=== PATIENT | male | born 1930 | race Caucasian/White ===

== ENCOUNTER → 2016-11-07 | Outpatient (CLI) | payer BC ==
[~2016-11-07] MED LIST: DUTA0.5C PO; FURO-85 PO; LISI-729 PO; LISI-789 PO; MCRK/10 PO; METO25TA3 PO; MIRT15TA2 PO; MIRT30TA3 PO; NEPA0.6D OPL; OFLO0.3D4 OPL; PRED1SUS3 OPL; PSYL55.43 PO; TAMS0.4C38 PO; WARF-237 PO; WARF5TAB90 PO
[2016-11-07 09:52] LABS: INR 2.1 (0.9-1.1); PROTHROMBIN TIME (PATIENT) 22.7 SECONDS (9.0-12.0)
== END | disposition home or self-care (01) ==
LOC: C.LABFOXMH 09:22
PROVIDERS: ATTEND Internal Medicine
DX: Z79.01 Long term (current) use of anticoagulants (principal)

== ENCOUNTER → 2016-11-21 | Outpatient (CLI) | payer BC ==
[~2016-11-21] MED LIST changes: -LISI-789 PO; -MIRT15TA2 PO; -NEPA0.6D OPL; -OFLO0.3D4 OPL; -PRED1SUS3 OPL; -WARF-237 PO
[2016-11-21 09:45] LABS: HEMATOCRIT 33.9 % (42-52); MEAN CELL VOLUME 93.4 fL (80-100); MEAN CORPUSCULAR HEMOGLOBIN 31.1 pg (25-34); MEAN CORPUSCULAR HGB CONC 33.3 g/dl (32-36); MEAN PLATELET VOLUME 11.1 fL (7.4-10.4); PLATELET COUNT 134 K/uL (130-400); RED BLOOD COUNT 3.63 M/uL (4.7-6.1); WHITE BLOOD COUNT 2.77 K/uL (4.8-10.8)
[2016-11-21 09:52] LABS: BLOOD UREA NITROGEN 28 mg/dl (7-18); BUN/CREATININE RATIO 28.7 (10-20); CALCIUM 9.1 mg/dl (8.5-10.1); CARBON DIOXIDE 28 mmol/L (21-32); CHLORIDE 106 mmol/L (98-107); CREATININE 0.97 mg/dl (0.60-1.40); GLUCOSE 87 mg/dl (70-99); POTASSIUM 4.5 mmol/L (3.5-5.1); SODIUM 142 mmol/L (136-145)
[2016-11-21 09:59] LABS: INR 2.3 (0.9-1.1); PROTHROMBIN TIME (PATIENT) 25.4 SECONDS (9.0-12.0)
== END | disposition home or self-care (01) ==
LOC: C.LABFOXMH 09:16
PROVIDERS: ATTEND Internal Medicine
DX: Z51.81 Encounter for therapeutic drug level monitoring (principal); Z79.01 Long term (current) use of anticoagulants; I48.2 Chronic atrial fibrillation

== ENCOUNTER → 2016-12-12 | Outpatient (CLI) | payer BC ==
[2016-12-12 09:55] LABS: PROTHROMBIN TIME (PATIENT) 33.5 SECONDS (9.0-12.0)
== END | disposition home or self-care (01) ==
LOC: C.LABFOXMH 09:12
PROVIDERS: ATTEND Internal Medicine
DX: Z79.01 Long term (current) use of anticoagulants (principal)

== ENCOUNTER → 2017-01-02 | Outpatient (CLI) | payer BC ==
[2017-01-02 10:39] LABS: INR 1.9 (0.9-1.1); PROTHROMBIN TIME (PATIENT) 20.9 SECONDS (9.0-12.0)
== END | disposition home or self-care (01) ==
LOC: C.LABFOXMH 10:12
PROVIDERS: ATTEND Internal Medicine
DX: Z79.01 Long term (current) use of anticoagulants (principal)

== ENCOUNTER → 2017-01-23 | Outpatient (CLI) | payer BC ==
[2017-01-23 09:34] LABS: INR 1.6 (0.9-1.1); PROTHROMBIN TIME (PATIENT) 17.1 SECONDS (9.0-12.0)
== END | disposition home or self-care (01) ==
LOC: C.LABFOXMH 08:57
PROVIDERS: ATTEND Internal Medicine
DX: Z51.81 Encounter for therapeutic drug level monitoring (principal); Z79.01 Long term (current) use of anticoagulants

== ENCOUNTER → 2017-02-13 | Outpatient (CLI) | payer BC ==
[~2017-02-13] MED LIST changes: +LISI-789 PO; +MIRT15TA2 PO; +NEPA0.6D OPL; +OFLO0.3D4 OPL; +PRED1SUS3 OPL; +WARF-237 PO
[2017-02-13 08:27] LABS: INR 2.5 (0.9-1.1)
== END | disposition home or self-care (01) ==
LOC: C.LABFOXMH 07:44
PROVIDERS: ATTEND Internal Medicine
DX: Z79.01 Long term (current) use of anticoagulants (principal)

== ENCOUNTER → 2017-03-06 | Outpatient (CLI) | payer BC ==
[2017-03-06 09:33] LABS: INR 2.7 (0.9-1.1); PROTHROMBIN TIME (PATIENT) 29.7 SECONDS (9.0-12.0)
== END | disposition home or self-care (01) ==
LOC: C.LABFOXMH 08:58
PROVIDERS: ATTEND Internal Medicine
DX: Z79.01 Long term (current) use of anticoagulants (principal)

== ENCOUNTER → 2017-03-20 | Outpatient (CLI) | payer BC ==
[2017-03-20 10:35] LABS: HEMATOCRIT 34.1 % (42-52); MEAN CELL VOLUME 96.3 fL (80-100); MEAN CORPUSCULAR HEMOGLOBIN 31.1 pg (25-34); MEAN CORPUSCULAR HGB CONC 32.3 g/dl (32-36); MEAN PLATELET VOLUME 11.4 fL (7.4-10.4); PLATELET COUNT 119 K/uL (130-400); RED BLOOD COUNT 3.54 M/uL (4.7-6.1)
[2017-03-20 10:47] LABS: INR 2.7 (0.9-1.1); PROTHROMBIN TIME (PATIENT) 30.2 SECONDS (9.0-12.0)
[2017-03-20 10:54] LABS: BLOOD UREA NITROGEN 23 mg/dl (7-18); BUN/CREATININE RATIO 24.5 (10-20); CALCIUM 9.5 mg/dl (8.5-10.1); CARBON DIOXIDE 31 mmol/L (21-32); CHLORIDE 106 mmol/L (98-107); CREATININE 0.93 mg/dl (0.60-1.40); GLUCOSE 91 mg/dl (70-99); POTASSIUM 4.4 mmol/L (3.5-5.1); SODIUM 141 mmol/L (136-145)
== END | disposition home or self-care (01) ==
LOC: C.LABFOXMH 10:14
PROVIDERS: ATTEND Internal Medicine
DX: D64.9 Anemia, unspecified (principal); R60.9 Edema, unspecified

== ENCOUNTER → 2017-04-10 | Outpatient (CLI) | payer BC ==
[2017-04-10 08:53] LABS: INR 2.5 (0.9-1.1); PROTHROMBIN TIME (PATIENT) 27.4 SECONDS (9.0-12.0)
== END | disposition home or self-care (01) ==
LOC: C.LABFOXMH 08:00
PROVIDERS: ATTEND Internal Medicine
DX: Z79.01 Long term (current) use of anticoagulants (principal)

== ENCOUNTER → 2017-05-01 | Outpatient (CLI) | payer BC ==
[~2017-05-01] MED LIST changes: -LISI-789 PO; -MIRT15TA2 PO; -NEPA0.6D OPL; -OFLO0.3D4 OPL; -PRED1SUS3 OPL; -WARF-237 PO
[2017-05-01 11:13] LABS: INR 2.3 (0.9-1.1); PROTHROMBIN TIME (PATIENT) 25.4 SECONDS (9.0-12.0)
== END | disposition home or self-care (01) ==
LOC: C.LABFOXMH 09:13
PROVIDERS: ATTEND Internal Medicine
DX: Z79.01 Long term (current) use of anticoagulants (principal)

== ENCOUNTER → 2017-05-10 | Outpatient (CLI) | payer BC ==
[2017-05-10 16:21] LABS: HEMATOCRIT 33.5 % (42-52); MEAN CELL VOLUME 93.6 fL (80-100); MEAN CORPUSCULAR HEMOGLOBIN 30.4 pg (25-34); MEAN CORPUSCULAR HGB CONC 32.5 g/dl (32-36); MEAN PLATELET VOLUME 11.2 fL (7.4-10.4); PLATELET COUNT 131 K/uL (130-400); RED BLOOD COUNT 3.58 M/uL (4.7-6.1); WHITE BLOOD COUNT 4.03 K/uL (4.8-10.8)
== END | disposition home or self-care (01) ==
LOC: C.LABSPEC 15:15
PROVIDERS: ATTEND Internal Medicine
DX: R23.3 Spontaneous ecchymoses (principal)

== ENCOUNTER → 2017-05-29 | Outpatient (CLI) | payer BC ==
[~2017-05-29] MED LIST changes: +LISI-789 PO; +MIRT15TA2 PO; +WARF-237 PO
[2017-05-29 10:12] LABS: INR 2.5 (0.9-1.1); PROTHROMBIN TIME (PATIENT) 27.3 SECONDS (9.0-12.0)
== END | disposition home or self-care (01) ==
LOC: C.LABFOXMH 09:17
PROVIDERS: ATTEND Internal Medicine
DX: Z51.81 Encounter for therapeutic drug level monitoring (principal); Z79.01 Long term (current) use of anticoagulants

== ENCOUNTER → 2017-06-19 | Outpatient (CLI) | payer BC ==
[2017-06-19 10:01] LABS: INR 2.4 (0.9-1.1)
== END | disposition home or self-care (01) ==
LOC: C.LABFOXMH 09:31
PROVIDERS: ATTEND Nurse Practitioner Family
DX: Z51.81 Encounter for therapeutic drug level monitoring (principal); Z79.01 Long term (current) use of anticoagulants

== ENCOUNTER → 2017-07-17 | Outpatient (CLI) | payer BC ==
[2017-07-17 11:30] LABS: INR 1.9 (0.9-1.1); PROTHROMBIN TIME (PATIENT) 20.6 SECONDS (9.0-12.0)
== END | disposition home or self-care (01) ==
LOC: C.LABFOXMH 09:10
PROVIDERS: ATTEND Nurse Practitioner Family
DX: Z51.81 Encounter for therapeutic drug level monitoring (principal); Z79.01 Long term (current) use of anticoagulants

== ENCOUNTER → 2017-07-31 | Outpatient (CLI) | payer BC ==
[2017-07-31 09:02] LABS: HEMATOCRIT 34.2 % (42-52); MEAN CELL VOLUME 94.7 fL (80-100); MEAN CORPUSCULAR HGB CONC 32.7 g/dl (32-36); PLATELET COUNT 129 K/uL (130-400); RED BLOOD COUNT 3.61 M/uL (4.7-6.1)
[2017-07-31 09:06] LABS: BLOOD UREA NITROGEN 21 mg/dl (7-18); BUN/CREATININE RATIO 19.2 (10-20); CALCIUM 9.1 mg/dl (8.5-10.1); CARBON DIOXIDE 29 mmol/L (21-32); CHLORIDE 106 mmol/L (98-107); GLUCOSE 91 mg/dl (70-99); POTASSIUM 4.4 mmol/L (3.5-5.1); SODIUM 141 mmol/L (136-145)
== END | disposition home or self-care (01) ==
LOC: C.LABFOXMH 08:37
PROVIDERS: ATTEND Internal Medicine
DX: I48.91 Unspecified atrial fibrillation (principal)

== ENCOUNTER → 2017-08-14 | Outpatient (CLI) | payer BC ==
[2017-08-14 08:21] LABS: INR 3.3 (0.9-1.1); PROTHROMBIN TIME (PATIENT) 37.6 SECONDS (9.0-12.0)
== END | disposition home or self-care (01) ==
LOC: C.LABFOXMH 07:38
PROVIDERS: ATTEND Internal Medicine
DX: Z79.01 Long term (current) use of anticoagulants (principal)

== ENCOUNTER → 2017-08-29 | Day surgery (SDC) | payer BC ==
[2017-08-17 12:58] VITALS: Ht 188 cm; Wt 95.0 kg
[~2017-08-29] VITALS: Ht 188 cm; Wt 95.0 kg
[~2017-08-29] MED LIST changes: +500ML BSS 0.3ML EPI 1:1000PF IRRIG ONE; +ACETAMINOPHEN 325 MG TAB PO PRN; +AMVISC PLUS 0.8ML SYRINGE INT OCU ONE; +ATROPINE SULFATE 0.1 MG/ML 5ML SYR IV PRN; +AcetaZOLAMIDE 250 MG TAB PO SCH; +BETAXOLOL HCL 0.25% OP SUSP PER DROP CHARGE OPL SCH; +BRIMONIDINE TART 0.2% OP SOLN PER DROP CHARGE ONE; +BSS FLUSH ONE; +ENDOCOAT 0.85ML SYRINGE INT OCU ONE; +EpHEDrine SULFATE INJ 50 MG/ML AMP IV PRN; +EpINEphrine INJ 1MG/ML AMP 1 MG/ML AMP ONE; +FENTANYL CITRATE INJ 50 MCG/1 ML 2 ML VIAL ONE; +LACTATED RINGER'S 1000ML 500 ML IV SCH; +LIDOCAINE 4% OP SOLN DROP CHARGE ONE; +LIDOCAINE 4% OP SOLN DROP CHARGE OPL SCH; +LIDOCAINE HCL 1% MPF 2 ML VIAL ONE; -LISI-729 PO; +MIDAZOLAM HCL 1 MG/ML 2ML VIAL ONE; -MIRT30TA3 PO; +MIX: 4ML BSS 1ML EPI 1:1000 PF INSTIL ONE; +MOXIFLOXACIN OPH SOLN PER DROP CHARGE ONE; +NEPA0.6D OPL; +OCUCOAT 1 ML SOLN IO ONE; +OFLO0.3D4 OPL; +PHENYLEPHRINE HCL 10% OP SOLN PER DROP CHARGE OPL SCH; +POVIDONE-IODINE OP SOLN 30 ML BTL ONE; +PRED1SUS3 OPL; +PROPARACAINE 0.5% OP SOLN PER DROP CHARGE OPL SCH; -PSYL55.43 PO; +TOBRAMYCIN/DEXAMETHASONE OPH OINT PER APPLN CHARGE ONE; +TRIAMCINOLONE ACETONIDE OPHTH 40 MG/ML VIAL STERILE IO ONE; -WARF5TAB90 PO
[2017-08-29] MEDS: PHENYLEPHRINE HCL 2.5% OP SOLN PER DROP CHARGE OPL SCH ×2 (11:02→11:07)
[2017-08-29] MEDS: TROPICAMIDE 1% OP SOLN PER DROP CHARGE OPL SCH ×2 (11:03→11:08)
[2017-08-29] MEDS: CYCLOPENTOLATE HCL 1% OP SOLN PER DROP CHARGE OPL SCH ×2 (11:04→11:09)
[2017-08-29] MEDS: MOXIFLOXACIN OPH SOLN PER DROP CHARGE OPL SCH ×2 (11:05→11:15)
--- NOTE | 2017-08-29 11:09 | History & Physical Bridge - [place] ---
H&P Re-Evaluation Bridge Note: I have examined the patient, reviewed the History & Physical and in the interval since the performance of the History & Physical I have noted the following changes of clinical significance: No changes noted
--- NOTE | 2017-08-29 12:13 | Discharge Instructions-SurgCtr ---
Discharge Instructions Date of Service Aug 29, 2017. Visit Reason for Visit: Cataract Left Eye Discharge Discharge Diagnosis / Problem: lens implant left eye Discharge Goals Goal(s): Improve function Activity Recommendations Activity Limitations: resume your previous activity Lifting Limitations: no more than 10 pounds Exercise/Sports Limitations: gradually increase as tolerated May Resume Sexual Activity: when tolerated Shower/Bathe: tomorrow Driving or Machine Use: resume 1 day after discharge Anesthesia . Post Anesthesia Instructions: If you have had General Anesthesia or IV Sedation: * Do not drive today. * Resume driving when surgeon permits. * Do not make important decisions or sign legal documents today. * Call surgeon for: 1. Temperature elevations greater than 101 degrees F. 2. Uncontrollable pain. 3. Excessive bleeding. 4. Persistent nausea and vomiting. 5. Medication intolerance (nausea, vomiting or rash). * For nausea and vomiting use only clear liquids such as: tea, soda, bouillon until nausea subsides, then gradually increase diet as tolerated. * If you have any concerns or questions, call your surgeon's office. If physician is unavailable and it is an emergency, call 911 or go to the nearest emergency room. . Instructions / Follow-Up Instructions / Follow-Up ACTIVITY RECOMMENDATIONS: * Light activities. * Mild irritation and blurred vision are common for the first few days. * You may walk outside, read, watch television. * Redness around the white part of the eye is common. MEDICATIONS: Resume previous medications unless instructed otherwise by your surgeon. * Take white Diamox (Acetazolamide) tablet at 3 pm today. Start all eye drops at 3 pm today: * Eye drops (today and tomorrow): Prednisone - one drop in operative eye every 3 hours while awake Ofloxacin - one drop in operative eye every 3 hours while awake Ilevro - one drop in operative eye once daily. SPECIAL CARE INSTRUCTIONS: * Tape plastic shield over eye to sleep at night. Call your doctor at with any concerns or problems. FOLLOW UP VISIT: Follow-up with Dr Valdez at [place] office as scheduled. Diet Recommendations Home Diet: no limitations Procedures Procedures Performed: cataract extraction with lens implant Pending Studies Studies pending at discharge: no Medical Emergencies . Who to Call and When: Medical Emergencies: If at any time you feel your situation is an emergency, please call 911 immediately. . Non-Emergent Contact Non-Emergency issues call your: [place] Call Non-Emergent contact if: your pain is not controlled [phone] . . "Provider Documentation" section prepared by Jeryr Valdez. .
--- NOTE | 2017-08-29 12:19 | [facility] Operative Report ---
Operative Report Date of Service Aug 29, 2017. Operative Report 1. PREOPERATIVE DIAGNOSIS: Senile nuclear cataract, left eye. 2. POSTOPERATIVE DIAGNOSIS: Senile nuclear cataract, left eye. 3. PROCEDURE: Phacoemulsification of left cataract with posterior chamber lens implant, type [employer], model [id number], power +21.0 diopters. ANESTHESIA: Local standby. SURGEON: Dr. Valdez. COMPLICATIONS: None. OPERATING TIME: 20 minutes. 4. OPERATION AND FINDINGS: DESCRIPTION OF PROCEDURE: The left pupil was dilated. The anesthetic was administered using a topical technique. The left eye was prepped and draped. A speculum was placed. A clear corneal incision was formed. The chamber was filled with Amvisc Plus and Endocoat. Epinephrine solution was used. A paracentesis was placed. A capsulorrhexis was performed. The nucleus was hydrodissected. The lens was removed with phacoemulsification. Time was 5.09 seconds. The posterior capsule was ruptured. An anterior vitrectomy was preformed. A small nuclear fragment remains in the posterior chamber. A moderate amount of cortex was left place. The capsule was filled with Amvisc Plus. The lens implant was folded and placed into the anterior chamber sulcus. The lens implant was centered though the stability was questionable. A second astigmatic incision was placed at the limbus. The incisions were hydrated. The Amvisc was aspirated. The wounds were secure. The chamber was deep. The pupil was round. Brimonidine, TobraDex ointment and Vigamox solution were placed. The speculum was removed. The patient was returned to the Recovery Room in stable condition. I attest to the content of the Intraoperative Record and any orders documented therein. Any exceptions are noted below. The scribe's documentation has been prepared in my presence, under my direction and personally reviewed by me in its entirety. I confirm that the note above accurately reflects all work, treatment, procedures, and medical decision making performed by me. I personally scribed for Jerry Valdez M.D. (MANA) on 08/29/17 at 12:19. Electronically submitted by Bruna Louise ([email or web address]).
[2017-08-29 12:27] VITALS: TEMP 36.5
--- NOTE | 2017-08-29 12:41 | Anesthesiology Progress Note ---
Anesthesia Post Op Note Date & Time Aug 29, 2017 at 12:41 Vital Signs Pain Intensity: 0 Vital Signs Past 12 Hours Date Time Temp Pulse Resp B/P (MAP) Pulse Ox O2 Delivery O2 Flow Rate FiO2 08/29/17 12:27 36.5 68 12 121/79 (93) 95 Room Air 08/29/17 10:49 36.6 82 18 122/66 (84) 98 Room Air Notes Mental Status: alert / awake / arousable, participated in evaluation Nausea / Vomiting: adequately controlled Pain: adequately controlled Airway Patency, RR, SpO2: stable & adequate BP & HR: stable & adequate Hydration State: stable & adequate Anesthetic Complications: no major complications apparent
[2017-08-29 12:46] VITALS: BP 117/74; PULSE 54; O2SAT 96
== END | disposition home or self-care (01) ==
LOC: X.SURG 09:12
PROVIDERS: ATTEND Specialist
DX: H25.11 Age-related nuclear cataract, right eye (principal); I48.91 Unspecified atrial fibrillation; N40.0 Benign prostatic hyperplasia without lower urinary tract symptoms; F41.9 Anxiety disorder, unspecified; F32.9 Major depressive disorder, single episode, unspecified; Z87.891 Personal history of nicotine dependence

== ENCOUNTER → 2017-09-25 | Outpatient (CLI) | payer BC ==
[~2017-09-25] MED LIST changes: -500ML BSS 0.3ML EPI 1:1000PF IRRIG ONE; -ACETAMINOPHEN 325 MG TAB PO PRN; -AMVISC PLUS 0.8ML SYRINGE INT OCU ONE; -ATROPINE SULFATE 0.1 MG/ML 5ML SYR IV PRN; -AcetaZOLAMIDE 250 MG TAB PO SCH; -BETAXOLOL HCL 0.25% OP SUSP PER DROP CHARGE OPL SCH; -BRIMONIDINE TART 0.2% OP SOLN PER DROP CHARGE ONE; -BSS FLUSH ONE; -ENDOCOAT 0.85ML SYRINGE INT OCU ONE; -EpHEDrine SULFATE INJ 50 MG/ML AMP IV PRN; -EpINEphrine INJ 1MG/ML AMP 1 MG/ML AMP ONE; -FENTANYL CITRATE INJ 50 MCG/1 ML 2 ML VIAL ONE; -LACTATED RINGER'S 1000ML 500 ML IV SCH; -LIDOCAINE 4% OP SOLN DROP CHARGE ONE; -LIDOCAINE 4% OP SOLN DROP CHARGE OPL SCH; -LIDOCAINE HCL 1% MPF 2 ML VIAL ONE; -MIDAZOLAM HCL 1 MG/ML 2ML VIAL ONE; -MIX: 4ML BSS 1ML EPI 1:1000 PF INSTIL ONE; -MOXIFLOXACIN OPH SOLN PER DROP CHARGE ONE; -OCUCOAT 1 ML SOLN IO ONE; -PHENYLEPHRINE HCL 10% OP SOLN PER DROP CHARGE OPL SCH; -POVIDONE-IODINE OP SOLN 30 ML BTL ONE; -PROPARACAINE 0.5% OP SOLN PER DROP CHARGE OPL SCH; -TOBRAMYCIN/DEXAMETHASONE OPH OINT PER APPLN CHARGE ONE; -TRIAMCINOLONE ACETONIDE OPHTH 40 MG/ML VIAL STERILE IO ONE
[2017-09-25 09:05] LABS: INR 1.2 (0.9-1.1); PROTHROMBIN TIME (PATIENT) 12.5 SECONDS (9.0-12.0)
== END | disposition home or self-care (01) ==
LOC: C.LABFOXMH 08:44
PROVIDERS: ATTEND Internal Medicine
DX: Z51.81 Encounter for therapeutic drug level monitoring (principal); Z79.01 Long term (current) use of anticoagulants

== ENCOUNTER → 2017-09-26 | Outpatient (CLI) | payer BC ==
[2017-09-26 09:41] LABS: INR 1.3 (0.9-1.1); PROTHROMBIN TIME (PATIENT) 14.4 SECONDS (9.0-12.0)
== END | disposition home or self-care (01) ==
LOC: C.LABFOXMH 09:06
PROVIDERS: ATTEND Internal Medicine
DX: Z51.81 Encounter for therapeutic drug level monitoring (principal); Z79.01 Long term (current) use of anticoagulants

== ENCOUNTER → 2017-09-28 | Outpatient (CLI) | payer BC ==
[2017-09-28 09:18] LABS: INR 1.7 (0.9-1.1); PROTHROMBIN TIME (PATIENT) 18.1 SECONDS (9.0-12.0)
== END | disposition home or self-care (01) ==
LOC: C.LAB 08:11
PROVIDERS: ATTEND Internal Medicine
DX: Z79.01 Long term (current) use of anticoagulants (principal)

== ENCOUNTER → 2017-10-01 | Outpatient (CLI) | payer BC ==
[2017-10-01 09:31] LABS: INR 1.7 (0.9-1.1); PROTHROMBIN TIME (PATIENT) 18.6 SECONDS (9.0-12.0)
== END | disposition home or self-care (01) ==
LOC: C.LABFOXMH 08:57
PROVIDERS: ATTEND Internal Medicine
DX: Z79.01 Long term (current) use of anticoagulants (principal)

== ENCOUNTER → 2017-10-18 | Outpatient (CLI) | payer BC ==
[2017-10-18 09:46] LABS: PROTHROMBIN TIME (PATIENT) 21.1 SECONDS (9.0-12.0)
== END | disposition home or self-care (01) ==
LOC: C.LABFOXMH 09:25
PROVIDERS: ATTEND Internal Medicine
DX: Z79.01 Long term (current) use of anticoagulants (principal)

== ENCOUNTER → 2017-10-26 | Outpatient (CLI) | payer BC ==
[2017-10-26 11:23] LABS: BLOOD UREA NITROGEN 19 mg/dl (7-18); BUN/CREATININE RATIO 20.1 (10-20); CALCIUM 9.3 mg/dl (8.5-10.1); CARBON DIOXIDE 31 mmol/L (21-32); CHLORIDE 105 mmol/L (98-107); CREATININE 0.93 mg/dl (0.60-1.40); GLUCOSE 97 mg/dl (70-99); HEMATOCRIT 32.5 % (42-52); MEAN CELL VOLUME 95.6 fL (80-100); MEAN CORPUSCULAR HEMOGLOBIN 32.4 pg (25-34); MEAN CORPUSCULAR HGB CONC 33.8 g/dl (32-36); MEAN PLATELET VOLUME 10.5 fL (7.4-10.4); PLATELET COUNT 115 K/uL (130-400); POTASSIUM 4.3 mmol/L (3.5-5.1); SODIUM 138 mmol/L (136-145); WHITE BLOOD COUNT 3.38 K/uL (4.8-10.8)
== END | disposition home or self-care (01) ==
LOC: C.LABFOXMH 10:24
PROVIDERS: ATTEND Nurse Practitioner Family
DX: R53.83 Other fatigue (principal)

== ENCOUNTER → 2017-11-06 | Outpatient (CLI) | payer BC | END | disposition home or self-care (01) | LOC: C.LABFOXMH 08:55 | PROVIDERS: ATTEND Internal Medicine | DX: Z51.81 Encounter for therapeutic drug level monitoring (principal); Z79.01 Long term (current) use of anticoagulants ==

== ENCOUNTER → 2017-12-04 | Outpatient (CLI) | payer BC ==
[2017-12-04 09:22] LABS: HEMATOCRIT 32.1 % (42-52); HEMOGLOBIN 10.6 g/dL (14.0-18.0); MEAN CELL VOLUME 95.5 fL (80-100); MEAN CORPUSCULAR HEMOGLOBIN 31.5 pg (25-34); MEAN PLATELET VOLUME 11.1 fL (7.4-10.4); PLATELET COUNT 117 K/uL (130-400); RED CELL DISTRIBUTION WIDTH CV 14.5 % (11.5-14.5); RED CELL DISTRIBUTION WIDTH SD 50.5 fL (36.4-46.3); WHITE BLOOD COUNT 3.67 K/uL (4.8-10.8)
[2017-12-04 09:23] LABS: INR 2.3 (0.9-1.1)
[2017-12-04 09:27] LABS: BLOOD UREA NITROGEN 23 mg/dl (7-18); CALCIUM 8.9 mg/dl (8.5-10.1); CARBON DIOXIDE 27 mmol/L (21-32); CREATININE 0.77 mg/dl (0.60-1.40); GLUCOSE 91 mg/dl (70-99); POTASSIUM 4.4 mmol/L (3.5-5.1); SODIUM 140 mmol/L (136-145)
== END | disposition home or self-care (01) ==
LOC: C.LABFOXMH 08:45
PROVIDERS: ATTEND Internal Medicine
DX: I48.91 Unspecified atrial fibrillation (principal); Z79.01 Long term (current) use of anticoagulants

== ENCOUNTER → 2018-01-01 | Outpatient (CLI) | payer BC ==
[2018-01-01 09:32] LABS: INR 2.1 (0.9-1.1)
== END | disposition home or self-care (01) ==
LOC: C.LABFOXMH 08:49
PROVIDERS: ATTEND Internal Medicine
DX: Z79.01 Long term (current) use of anticoagulants (principal)

== ENCOUNTER → 2018-01-29 | Outpatient (CLI) | payer BC ==
[2018-01-29 09:39] LABS: INR 2.4 (0.9-1.1)
== END | disposition home or self-care (01) ==
LOC: C.LABFOXMH 09:03
PROVIDERS: ATTEND Internal Medicine
DX: Z79.01 Long term (current) use of anticoagulants (principal)

== ENCOUNTER → 2018-02-20 | Outpatient (CLI) | payer BC ==
[2018-02-20 08:22] LABS: INR 2.1 (0.9-1.1)
== END | disposition home or self-care (01) ==
LOC: C.LABFOXMH 07:49
PROVIDERS: ATTEND Internal Medicine
DX: Z79.01 Long term (current) use of anticoagulants (principal)

== ENCOUNTER → 2018-03-19 | Outpatient (CLI) | payer BC ==
[2018-03-19 09:25] LABS: HEMATOCRIT 31.3 % (42-52); HEMOGLOBIN 10.2 g/dL (14.0-18.0); MEAN CELL VOLUME 93.2 fL (80-100); MEAN CORPUSCULAR HEMOGLOBIN 30.4 pg (25-34); MEAN CORPUSCULAR HGB CONC 32.6 g/dl (32-36); PLATELET COUNT 120 K/uL (130-400); RED CELL DISTRIBUTION WIDTH CV 14.7 % (11.5-14.5); RED CELL DISTRIBUTION WIDTH SD 49.5 fL (36.4-46.3)
[2018-03-19 09:41] LABS: INR 2.1 (0.9-1.1)
[2018-03-19 11:23] LABS: BLOOD UREA NITROGEN 20 mg/dl (7-18); CARBON DIOXIDE 30 mmol/L (21-32); CREATININE 1.02 mg/dl (0.60-1.40); GLUCOSE 85 mg/dl (70-99); POTASSIUM 4.6 mmol/L (3.5-5.1); SODIUM 140 mmol/L (136-145)
[2018-03-19 11:24] LABS: CALCIUM 8.8 mg/dl (8.5-10.1)
== END | disposition home or self-care (01) ==
LOC: C.LABFOXMH 08:32
PROVIDERS: ATTEND Internal Medicine
DX: Z51.81 Encounter for therapeutic drug level monitoring (principal); Z79.01 Long term (current) use of anticoagulants; D64.9 Anemia, unspecified

== ENCOUNTER → 2018-06-11 | Outpatient (CLI) | payer BC ==
[2018-06-11 10:55] LABS: INR 2.7 (0.9-1.1)
== END | disposition home or self-care (01) ==
LOC: C.LABFOXMH 08:32
PROVIDERS: ATTEND Internal Medicine
DX: Z79.01 Long term (current) use of anticoagulants (principal)

== ENCOUNTER 2020-12-02 00:32 | Inpatient (IN) ==
--- NOTE | 2020-12-02 00:52 | Emergency Department Note ---
History of Present Illness General Chief complaint: Abdominal Pain Stated complaint: NAUSEA/VOMITING/DIARRHEA/ABDOMINAL PAIN Time Seen by Provider: 12/02/20 00:35 History of Present Illness This 89-year-old with dementia from the residential presents to the ER complaining of vomiting and diarrhea who received his second Covid vaccine yesterday Location: Abdomen Quality: Vomiting and diarrhea Severity: Moderate Duration: Today Timing: prison tried Zofran today Context: prison was concerned and sent him in Modifying factors: better with Zofran; worse with activity Patient has dementia and unable to obtain history. History is obtained from EMS who states patient's had vomiting and diarrhea all day. Home Medications Medication Instructions Recorded Confirmed Type acetaminophen [Tylenol Extra 500 mg PO Q4 PRN MDD 3gm 12/02/20 12/02/20 History Strength] acetaminophen [Tylenol Extra 500 mg PO Q4 PRN MDD 3gm 12/02/20 12/02/20 History Strength] artificial tears solution 1 drp OPHTHALMIC (EYE) .Q 1 HOURS 12/02/20 12/02/20 History PRN cholecalciferol (vitamin D3) 50 mcg PO QAM 12/02/20 12/02/20 History [Vitamin D3] citalopram [Celexa] 10 mg PO BID 12/02/20 12/02/20 History famotidine [Pepcid] 20 mg PO BID 12/02/20 12/02/20 History furosemide [Lasix] 40 mg PO QAM 12/02/20 12/02/20 History lisinopril 2.5 mg PO QPM 12/02/20 12/02/20 History melatonin 1 mg PO HS 12/02/20 12/02/20 History metoprolol tartrate 25 mg PO QAM 12/02/20 12/02/20 History nystatin 1 applic TOPICAL UD PRN 12/02/20 12/02/20 History ondansetron HCl [Zofran] 4 mg PO BID PRN 12/02/20 12/02/20 History potassium chloride 10 meq PO QAM 12/02/20 12/02/20 History psyllium 1 tbsp PO BID 12/02/20 12/02/20 History [id number] 1 drp OPB .Q 1 HOUR PRN 12/02/20 12/02/20 History triamcinolone acetonide 1 applic TOPICAL BID PRN 12/02/20 12/02/20 History Allergies Allergy/AdvReac Type Severity Reaction Status Date / Time Penicillins Allergy Intermediate RASH Verified 12/02/20 01:25 Past Med/Surg History Medical History Accidental medication overdose Alzheimer's dementia Nondisplaced fracture of lateral end of clavicle Surgical History No pertinent past surgical history Family History Other No pertinent family history Social History Smoking Status: Unknown if ever smoked Feels Safe at Home: Yes Review of Systems Unable to obtain secondary to dementia Physical Exam Vital Signs Vital Signs - 24 hr 12/02/20 00:37 12/02/20 01:50 12/02/20 01:51 Temperature 36.3 C L Temperature Source Axillary Pulse Rate 156 H 128 H 145 H Pulse Rate [Right Finger] Pulse Rate from SpO2 Sensor 133 H 141 H Pulse Rhythm [Right Finger] Respiratory Rate 18 33 H 32 H Respiratory Depth Normal Blood Pressure 96/65 L 75/50 L 87/50 L Blood Pressure [Right Arm] Blood Pressure Mean 75 58 62 Blood Pressure Mean [Right Arm] Blood Pressure Position Lying Blood Pressure Position [Right Arm] Pulse Oximetry 88 L 97 100 Oxygen Delivery Method Room Air Oxygen Flow Rate Sepsis Recent Fever Within 48 Hours No Sepsis New/Unexplained Change in Mental Status No Sepsis Action Taken by Nursing No Action Required 12/02/20 01:54 12/02/20 01:56 12/02/20 01:57 Temperature Temperature Source Pulse Rate 136 H 147 H Pulse Rate [Right Finger] 130 H Pulse Rate from SpO2 Sensor 150 H 152 H Pulse Rhythm [Right Finger] Irregular Respiratory Rate 31 H 18 32 H Respiratory Depth Normal Blood Pressure 104/67 86/40 L Blood Pressure [Right Arm] 104/60 Blood Pressure Mean 79 55 Blood Pressure Mean [Right Arm] 74 Blood Pressure Position Blood Pressure Position [Right Arm] Lying Pulse Oximetry 99 98 98 Oxygen Delivery Method Oxymask Oxygen Flow Rate 6 Sepsis Recent Fever Within 48 Hours Sepsis New/Unexplained Change in Mental Status Sepsis Action Taken by Nursing 12/02/20 02:00 12/02/20 02:01 12/02/20 02:03 Temperature Temperature Source Pulse Rate 135 H 144 H 138 H Pulse Rate [Right Finger] Pulse Rate from SpO2 Sensor 144 H 138 H 151 H Pulse Rhythm [Right Finger] Respiratory Rate 33 H 30 H 32 H Respiratory Depth Blood Pressure 104/65 118/92 Blood Pressure [Right Arm] Blood Pressure Mean 78 100 Blood Pressure Mean [Right Arm] Blood Pressure Position Blood Pressure Position [Right Arm] Pulse Oximetry 93 95 93 Oxygen Delivery Method Oxygen Flow Rate Sepsis Recent Fever Within 48 Hours Sepsis New/Unexplained Change in Mental Status Sepsis Action Taken by Nursing 12/02/20 02:06 12/02/20 02:07 12/02/20 02:10 Temperature Temperature Source Pulse Rate 131 H 134 H 147 H Pulse Rate [Right Finger] Pulse Rate from SpO2 Sensor 126 H 124 H 151 H Pulse Rhythm [Right Finger] Respiratory Rate 33 H 33 H 30 H Respiratory Depth Blood Pressure 93/20 L 75/46 L 49/30 L Blood Pressure [Right Arm] Blood Pressure Mean 44 55 36 Blood Pressure Mean [Right Arm] Blood Pressure Position Blood Pressure Position [Right Arm] Pulse Oximetry 90 90 90 Oxygen Delivery Method Oxygen Flow Rate Sepsis Recent Fever Within 48 Hours Sepsis New/Unexplained Change in Mental Status Sepsis Action Taken by Nursing 12/02/20 02:11 12/02/20 02:12 12/02/20 02:16 Temperature Temperature Source Pulse Rate 142 H 133 H 144 H Pulse Rate [Right Finger] Pulse Rate from SpO2 Sensor 136 H 138 H 134 H Pulse Rhythm [Right Finger] Respiratory Rate 33 H 29 H 28 H Respiratory Depth Blood Pressure 100/46 L 70/30 L Blood Pressure [Right Arm] Blood Pressure Mean 64 43 Blood Pressure Mean [Right Arm] Blood Pressure Position Blood Pressure Position [Right Arm] Pulse Oximetry 91 91 89 L Oxygen Delivery Method Oxygen Flow Rate Sepsis Recent Fever Within 48 Hours Sepsis New/Unexplained Change in Mental Status Sepsis Action Taken by Nursing 12/02/20 02:20 12/02/20 02:21 12/02/20 02:26 Temperature Temperature Source Pulse Rate 137 H 130 H 135 H Pulse Rate [Right Finger] Pulse Rate from SpO2 Sensor 140 H 122 H 144 H Pulse Rhythm [Right Finger] Respiratory Rate 34 H 33 H 34 H Respiratory Depth Blood Pressure 95/66 L 65/46 L Blood Pressure [Right Arm] Blood Pressure Mean 75 52 Blood Pressure Mean [Right Arm] Blood Pressure Position Blood Pressure Position [Right Arm] Pulse Oximetry 93 92 90 Oxygen Delivery Method Oxygen Flow Rate Sepsis Recent Fever Within 48 Hours Sepsis New/Unexplained Change in Mental Status Sepsis Action Taken by Nursing 12/02/20 02:29 12/02/20 02:30 12/02/20 02:31 Temperature Temperature Source Pulse Rate 127 H 127 H 144 H Pulse Rate [Right Finger] Pulse Rate from SpO2 Sensor 125 H 148 H 128 H Pulse Rhythm [Right Finger] Respiratory Rate 32 H 31 H 30 H Respiratory Depth Blood Pressure 84/56 L 81/58 L Blood Pressure [Right Arm] Blood Pressure Mean 65 65 Blood Pressure Mean [Right Arm] Blood Pressure Position Blood Pressure Position [Right Arm] Pulse Oximetry 94 96 95 Oxygen Delivery Method Oxygen Flow Rate Sepsis Recent Fever Within 48 Hours Sepsis New/Unexplained Change in Mental Status Sepsis Action Taken by Nursing 12/02/20 02:35 12/02/20 02:40 12/02/20 02:41 Temperature Temperature Source Pulse Rate 139 H 135 H 127 H Pulse Rate [Right Finger] Pulse Rate from SpO2 Sensor 128 H 133 H 119 H Pulse Rhythm [Right Finger] Respiratory Rate 34 H 34 H 32 H Respiratory Depth Blood Pressure 92/62 L 88/63 L Blood Pressure [Right Arm] Blood Pressure Mean 72 71 Blood Pressure Mean [Right Arm] Blood Pressure Position Blood Pressure Position [Right Arm] Pulse Oximetry 93 98 98 Oxygen Delivery Method Oxygen Flow Rate Sepsis Recent Fever Within 48 Hours Sepsis New/Unexplained Change in Mental Status Sepsis Action Taken by Nursing 12/02/20 02:45 12/02/20 02:50 12/02/20 02:51 Temperature Temperature Source Pulse Rate 144 H 140 H 139 H Pulse Rate [Right Finger] Pulse Rate from SpO2 Sensor 143 H 137 H 149 H Pulse Rhythm [Right Finger] Respiratory Rate 30 H 33 H 33 H Respiratory Depth Blood Pressure 94/61 L 95/74 L Blood Pressure [Right Arm] Blood Pressure Mean 72 81 Blood Pressure Mean [Right Arm] Blood Pressure Position Blood Pressure Position [Right Arm] Pulse Oximetry 97 98 93 Oxygen Delivery Method Oxygen Flow Rate Sepsis Recent Fever Within 48 Hours Sepsis New/Unexplained Change in Mental Status Sepsis Action Taken by Nursing 12/02/20 02:55 12/02/20 03:00 12/02/20 03:01 Temperature Temperature Source Pulse Rate 143 H 134 H 130 H Pulse Rate [Right Finger] Pulse Rate from SpO2 Sensor 136 H 120 H 128 H Pulse Rhythm [Right Finger] Respiratory Rate 31 H 31 H 35 H Respiratory Depth Blood Pressure 80/64 L 101/67 Blood Pressure [Right Arm] Blood Pressure Mean 69 78 Blood Pressure Mean [Right Arm] Blood Pressure Position Blood Pressure Position [Right Arm] Pulse Oximetry 100 100 94 Oxygen Delivery Method Oxygen Flow Rate Sepsis Recent Fever Within 48 Hours Sepsis New/Unexplained Change in Mental Status Sepsis Action Taken by Nursing 12/02/20 03:05 12/02/20 03:10 12/02/20 03:11 Temperature Temperature Source Pulse Rate 148 H 129 H 140 H Pulse Rate [Right Finger] Pulse Rate from SpO2 Sensor 140 H 124 H 135 H Pulse Rhythm [Right Finger] Respiratory Rate 33 H 33 H 33 H Respiratory Depth Blood Pressure 88/67 L 100/35 L Blood Pressure [Right Arm] Blood Pressure Mean 74 56 Blood Pressure Mean [Right Arm] Blood Pressure Position Blood Pressure Position [Right Arm] Pulse Oximetry 99 100 100 Oxygen Delivery Method Oxygen Flow Rate Sepsis Recent Fever Within 48 Hours Sepsis New/Unexplained Change in Mental Status Sepsis Action Taken by Nursing 12/02/20 03:15 12/02/20 03:20 12/02/20 03:21 Temperature Temperature Source Pulse Rate 131 H 139 H 137 H Pulse Rate [Right Finger] 145 H Pulse Rate from SpO2 Sensor 144 H 134 H 141 H Pulse Rhythm [Right Finger] Respiratory Rate 34 H 33 H 32 H Respiratory Depth Blood Pressure 86/58 L 51/39 L Blood Pressure [Right Arm] 70/65 L Blood Pressure Mean 67 43 Blood Pressure Mean [Right Arm] 66 Blood Pressure Position Blood Pressure Position [Right Arm] Lying Pulse Oximetry 100 99 100 Oxygen Delivery Method Oxymask Oxygen Flow Rate 6 Sepsis Recent Fever Within 48 Hours Sepsis New/Unexplained Change in Mental Status Sepsis Action Taken by Nursing 12/02/20 03:23 12/02/20 03:25 12/02/20 03:30 Temperature Temperature Source Pulse Rate 140 H 154 H 150 H Pulse Rate [Right Finger] Pulse Rate from SpO2 Sensor 136 H 151 H 137 H Pulse Rhythm [Right Finger] Respiratory Rate 33 H 34 H 36 H Respiratory Depth Blood Pressure 91/53 L 102/78 83/59 L Blood Pressure [Right Arm] Blood Pressure Mean 65 86 67 Blood Pressure Mean [Right Arm] Blood Pressure Position Blood Pressure Position [Right Arm] Pulse Oximetry 99 96 94 Oxygen Delivery Method Oxygen Flow Rate Sepsis Recent Fever Within 48 Hours Sepsis New/Unexplained Change in Mental Status Sepsis Action Taken by Nursing 12/02/20 03:31 12/02/20 03:35 12/02/20 03:40 Temperature Temperature Source Pulse Rate 158 H 160 H 144 H Pulse Rate [Right Finger] Pulse Rate from SpO2 Sensor 146 H 149 H 148 H Pulse Rhythm [Right Finger] Respiratory Rate 32 H 35 H 33 H Respiratory Depth Blood Pressure 90/60 L 74/59 L Blood Pressure [Right Arm] Blood Pressure Mean 70 64 Blood Pressure Mean [Right Arm] Blood Pressure Position Blood Pressure Position [Right Arm] Pulse Oximetry 95 97 94 Oxygen Delivery Method Oxygen Flow Rate Sepsis Recent Fever Within 48 Hours Sepsis New/Unexplained Change in Mental Status Sepsis Action Taken by Nursing 12/02/20 03:41 12/02/20 03:45 12/02/20 03:50 Temperature Temperature Source Pulse Rate 150 H 134 H 140 H Pulse Rate [Right Finger] Pulse Rate from SpO2 Sensor 146 H 120 H 142 H Pulse Rhythm [Right Finger] Respiratory Rate 34 H 33 H 35 H Respiratory Depth Blood Pressure 73/51 L 88/63 L Blood Pressure [Right Arm] Blood Pressure Mean 58 71 Blood Pressure Mean [Right Arm] Blood Pressure Position Blood Pressure Position [Right Arm] Pulse Oximetry 94 94 95 Oxygen Delivery Method Oxygen Flow Rate Sepsis Recent Fever Within 48 Hours Sepsis New/Unexplained Change in Mental Status Sepsis Action Taken by Nursing 12/02/20 03:51 12/02/20 03:56 12/02/20 03:58 Temperature Temperature Source Pulse Rate 144 H 147 H 153 H Pulse Rate [Right Finger] Pulse Rate from SpO2 Sensor 141 H 144 H 141 H Pulse Rhythm [Right Finger] Respiratory Rate 32 H 31 H 33 H Respiratory Depth Blood Pressure 60/39 L Blood Pressure [Right Arm] Blood Pressure Mean 46 90 Blood Pressure Mean [Right Arm] Blood Pressure Position Blood Pressure Position [Right Arm] Pulse Oximetry 97 100 100 Oxygen Delivery Method Oxygen Flow Rate Sepsis Recent Fever Within 48 Hours Sepsis New/Unexplained Change in Mental Status Sepsis Action Taken by Nursing 12/02/20 04:00 12/02/20 04:01 12/02/20 04:05 Temperature Temperature Source Pulse Rate 144 H 145 H 128 H Pulse Rate [Right Finger] Pulse Rate from SpO2 Sensor 127 H 158 H 127 H Pulse Rhythm [Right Finger] Respiratory Rate 36 H 25 H 36 H Respiratory Depth Blood Pressure 65/55 L 66/47 L Blood Pressure [Right Arm] Blood Pressure Mean 58 53 Blood Pressure Mean [Right Arm] Blood Pressure Position Blood Pressure Position [Right Arm] Pulse Oximetry 92 93 100 Oxygen Delivery Method Oxygen Flow Rate Sepsis Recent Fever Within 48 Hours Sepsis New/Unexplained Change in Mental Status Sepsis Action Taken by Nursing VITALS: Vitals are noted on the nurse's note and reviewed by myself. Vital signs stable. GENERAL: Demented appearing male, dehydrated appearing SKIN: Capillary reflex less than 2 seconds. HEENT: Normocephalic. PERRLA. EOMI. Nares patent. Mucous membranes moist. Neck is supple without nuchal rigidity. HEART: Tachycardic irregularly irregular LUNGS: Clear to auscultation bilaterally without wheezes, rales or rhonchi. No retractions or accessory muscle use. ABDOMEN: Positive bowel sounds x 4. Normal tympanic percussion. Soft, tender to palpation lower abdomen without masses or organomegaly. Rosado sign negative. No guarding or rebound tenderness. MUSCULOSKELETAL: No gross musculoskeletal defects. NEURO: Patient was alert but not oriented to person place and time. No focal neurological deficits. Course Administered Medications Norepinephrine Bitartrate (Levophed/D5w) 8 mg in 508 mls @ 18.402 mls/hr IV .Q24H [facility]; Protocol Stop: 01/01/21 01:59 Last Admin: 12/02/20 03:12 Dose: 0.08 mcg/kg/min, 29.4 mls/hr Documented by: [id number] Cosigned by: [id number] Discontinued Medications Calcium Gluconate (Calcium Gluconate 1000 Mg/60 Ml Nss) Confirm Administered Dose 1,000 mg IV .STK-MED ONE Stop: 12/02/20 02:41 Last Admin: 12/02/20 03:12 Dose: 1,000 mg Documented by: [id number] Calcium Gluconate (Calcium Gluconate 1000 Mg/60 Ml Nss) Confirm Administered Dose 1,000 mg IV .STK-MED ONE Stop: 12/02/20 02:42 Last Admin: 12/02/20 03:12 Dose: 1,000 mg Documented by: [id number] Epinephrine HCl (Epinephrine Inj 1 Mg/Ml Amp) Confirm Administered Dose 1 mg .ROUTE .STK-MED ONE Stop: 12/02/20 01:39 Last Admin: 12/02/20 01:56 Dose: Not Given Documented by: [id number] Epinephrine HCl (Epinephrine 1.5" Ndl 0.1 Mg/Ml Syr) Confirm Administered Dose 1 mg IV .STK-MED ONE Stop: 12/02/20 01:39 Last Admin: 12/02/20 01:56 Dose: Not Given Documented by: [id number] Epinephrine HCl (Epinephrine 1.5" Ndl 0.1 Mg/Ml Syr) Confirm Administered Dose 1 mg IV .STK-MED ONE Stop: 12/02/20 01:45 Last Admin: 12/02/20 01:56 Dose: Not Given Documented by: [id number] Epinephrine HCl (Epinephrine 1.5" Ndl 0.1 Mg/Ml Syr) 1 mg IV NOW STA Stop: 12/02/20 01:53 Last Admin: 12/02/20 01:56 Dose: 1 mg Documented by: [id number] Sodium Chloride (Nss 1000ml) 1,000 mls @ 999 mls/hr IV .Q1H1M MARKEL Stop: 12/02/20 02:00 Last Admin: 12/02/20 00:53 Dose: 999 mls/hr Documented by: [id number] Ioversol (Ioversol 100ml) 100 ml IV ONCE ONE Stop: 12/02/20 01:27 Last Admin: 12/02/20 01:27 Dose: 93 ml Documented by: [id number] Levofloxacin/Dextrose (Levofloxacin 500mg / 100ml D5w) Confirm Administered Dose 500 mg IV .STK-MED ONE Stop: 12/02/20 02:43 Last Admin: 12/02/20 03:12 Dose: 500 mg Documented by: [id number] Metronidazole (Metronidazole 500 Mg/100 Ml Bag) Confirm Administered Dose 500 mg IV .STK-MED ONE Stop: 12/02/20 02:42 Last Admin: 12/02/20 03:12 Dose: 500 mg Documented by: [id number] Miscellaneous (Stat Iv Infusion Titration Per Protocol) 1 ea N/A NOW STA Stop: 12/02/20 01:53 Last Admin: 12/02/20 03:13 Dose: 1 ea Documented by: [id number] Norepinephrine Bitartrate (Norepinephrine/D5w 8 Mg/508 Ml) Confirm Administered Dose 8 mg IV .STK-MED ONE Stop: 12/02/20 01:53 Last Admin: 12/02/20 03:13 Dose: Not Given Documented by: [id number] Critical Care Time Critical Care Time: Yes Total Critical Care Time: 35 I have personally spent 35 minutes of critical care time in the direct management of this patient. This includes bedside care, interpretation of diagnostic studies, and testing, discussion with consultants, patient, and family members, and other required patient management activities. This 35 minutes is in excess of all separately billable procedures. Medical Decision Making Medical Records Attestation: I reviewed the patient's medical records. Home Medications Current Medication List: was personally reviewed by me Laboratory Data Attestation: I reviewed the patient's lab results. Result diagrams: 12/02/20 00:45 12/02/20 00:45 Lab Results 12/02/20 12/02/20 12/02/20 Range/Units 00:45 00:45 00:58 WBC 11.39 H (4.8-10.8) K/uL RBC 4.60 L (4.7-6.1) M/uL Hgb 14.6 (14.0-18.0) g/dL Hct 44.7 (42-52) % MCV 97.2 (80-100) fL MCH 31.7 (25-34) pg MCHC 32.7 (32-36) g/dL RDW Std Deviation 51.5 H (36.4-46.3) fL RDW Coeff of [place] 14.6 H (11.5-14.5) % Plt Count 311 (130-400) K/uL MPV 10.8 H (7.4-10.4) fL Immature Gran % (Auto) 1.0 % Neut % (Auto) 89.4 % Lymph % (Auto) 4.0 % [place] % (Auto) 5.4 % Eos % (Auto) 0.1 % Baso % (Auto) 0.1 % Neut # (Auto) 10.19 H (1.4-6.5) K/uL Lymph # (Auto) 0.45 L (1.2-3.4) K/uL [place] # (Auto) 0.62 H (0.11-0.59) K/uL Eos # (Auto) 0.01 (0-0.5) K/uL Baso # (Auto) 0.01 (0-0.2) K/uL Immature Gran # (Auto) 0.11 H (0.00-0.02) K/uL Absolute Nucleated RBC 0.03 H (0-0) K/uL Nucleated RBC % (auto) 0.2 % Sodium 139 (136-145) mmol/L Potassium 5.8 H D (3.5-5.1) mmol/L Chloride 102 (98-107) mmol/L Carbon Dioxide 22 (21-32) mmol/L Anion Gap 16.0 H (3-11) BUN 44 H (7-18) mg/dl Creatinine 2.29 H D (0.6-1.4) mg/dl Est Cr Clr Drug Dosing 26.4 ml/min Est GFR ( Amer) 28.3 Est GFR (Non-Af Amer) 24.4 BUN/Creatinine Ratio 19.1 (10-20) Glucose 130 H (70-99) mg/dl Calcium 9.8 (8.5-10.1) mg/dl Magnesium 2.8 H (1.8-2.4) mg/dl Total Bilirubin 1.3 H (0.2-1) mg/dl AST 27 (15-37) U/L ALT 17 (12-78) U/L Alkaline Phosphatase 105 (45-117) U/L Troponin I 0.092 H* (0-0.045) ng/ml Total Protein 7.1 (6.4-8.2) gm/dl Albumin 3.1 L (3.4-5.0) gm/dl Globulin 4.0 (2.5-4.0) gm/dl Albumin/Globulin Ratio 0.8 L (0.9-2) Lipase 98 (73-393) U/L Urine Color Yellow Urine Appearance Clear (Clear) Urine pH 7.0 (4.5-7.5) Ur Specific [place] 1.020 (1.000-1.030) Urine Protein Negative (Negative) Urine Glucose (UA) Negative (Negative) Urine Ketones Negative (Negative) Urine Blood Negative (Negative) Urine Nitrite Negative (Negative) Urine Bilirubin Negative (Negative) Urine Urobilinogen Negative (Negative) Ur Leukocyte Esterase Negative (Negative) SARS-CoV-2, RNA, NAAT (NEGATIVE) 12/02/20 Range/Units 02:33 WBC (4.8-10.8) K/uL RBC (4.7-6.1) M/uL Hgb (14.0-18.0) g/dL Hct (42-52) % MCV (80-100) fL MCH (25-34) pg MCHC (32-36) g/dL RDW Std Deviation (36.4-46.3) fL RDW Coeff of [place] (11.5-14.5) % Plt Count (130-400) K/uL MPV (7.4-10.4) fL Immature Gran % (Auto) % Neut % (Auto) % Lymph % (Auto) % [place] % (Auto) % Eos % (Auto) % Baso % (Auto) % Neut # (Auto) (1.4-6.5) K/uL Lymph # (Auto) (1.2-3.4) K/uL [place] # (Auto) (0.11-0.59) K/uL Eos # (Auto) (0-0.5) K/uL Baso # (Auto) (0-0.2) K/uL Immature Gran # (Auto) (0.00-0.02) K/uL Absolute Nucleated RBC (0-0) K/uL Nucleated RBC % (auto) % Sodium (136-145) mmol/L Potassium (3.5-5.1) mmol/L Chloride (98-107) mmol/L Carbon Dioxide (21-32) mmol/L Anion Gap (3-11) BUN (7-18) mg/dl Creatinine (0.6-1.4) mg/dl Est Cr Clr Drug Dosing ml/min Est GFR ( Amer) Est GFR (Non-Af Amer) BUN/Creatinine Ratio (10-20) Glucose (70-99) mg/dl Calcium (8.5-10.1) mg/dl Magnesium (1.8-2.4) mg/dl Total Bilirubin (0.2-1) mg/dl AST (15-37) U/L ALT (12-78) U/L Alkaline Phosphatase (45-117) U/L Troponin I (0-0.045) ng/ml Total Protein (6.4-8.2) gm/dl Albumin (3.4-5.0) gm/dl Globulin (2.5-4.0) gm/dl Albumin/Globulin Ratio (0.9-2) Lipase (73-393) U/L Urine Color Urine Appearance (Clear) Urine pH (4.5-7.5) Ur Specific [place] (1.000-1.030) Urine Protein (Negative) Urine Glucose (UA) (Negative) Urine Ketones (Negative) Urine Blood (Negative) Urine Nitrite (Negative) Urine Bilirubin (Negative) Urine Urobilinogen (Negative) Ur Leukocyte Esterase (Negative) SARS-CoV-2, RNA, NAAT NEGATIVE (NEGATIVE) Imaging Data Attestation: I personally reviewed and interpreted this imaging study as follows: MDM Narrative Prior records/ancillary studies reviewed. Triage Nursing notes reviewed. Additional history obtained from EMS The patient's history was concerning for nausea, vomiting, diarrhea, and abdomi nal pain. Pt is a DNR and this was verified with the . Differential diagnosis: Etiologies such as gastroenteritis, food borne illness, infections, appendicitis, diverticulitis, inflammatory bowel disease, obstruction, GI bleed, biliary pathology, as well as others were entertained. Physical examination findings: As above. Abdominal examination revealed tenderness. Vital signs reviewed and revealed tachycardic. ER treatment provided: IV hydration 3 L NSS. 2 IV lines Levaquin, Flagyl, epinephrine, Levophed, calcium Patient was already given Zofran On reassessment the patient felt better. Patient was tolerating p.o. intake. Diagnostics interpretation by me: EKG ordered for tachycardia EKG: Irregularly irregular with no acute ST-T wave changes, rate of 144, no obvious Q waves, impression atrial fibrillation with RVR interpreted myself The labs revealed hyperkalemia and patient was given calcium Elevated troponin Leukocytosis Negative Covid, negative urine Imaging studies: CT ABDOMEN & PELVIS With Contrast: Bilateral lower lobe airspace disease and atelectasis. Correlate for pneumonia. Distended redundant sigmoid colon extends into the anterior right upper quad rant, anterior to the liver. No clear findings of sigmoid volvulus. Colonic diverticulosis. Diffuse mild wall thickening throughout the colon and mild surrounding fat stranding. Query mild wall thickening of fluid-filled small bowel loops throughout the abdomen. No significant small bowel dilation. Overall findings may reflect enterocolitis. Formed stool in the distal rectum with marked proximal distention and somewhat more fluid contents proximal to this. Rectal wall thickening and perirectal stranding may also reflect fecal impaction and stercoral colitis. No pneumatosis, portal venous gas or free fluid. Stomach is distended with fluid. Small and mildly enlarged retroperitoneal nodes. DDX includes infectious, inflammatory or neoplastic process. Bladder wall thickening versus partial distention. Somewhat asymmetric appearance. Correlate for cystitis. Malignancy not excluded. Mild cardiomegaly. Coronary calcifications. Gallstone. Right renal low-density lesion. 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 Multiple compression deformities of the lumbar spine, age-indeterminate. Degenerative changes. L5- S1 grade 1 spondylolisthesis. Radiologist: Gerardo Posada M.D. Chest x-ray with no acute consolidation, pneumothorax or free of mitral rotation I spoke to the and states the patient is a DNR. She does not want CPR or the patient to be intubated. She would like all other treatments though. Consultation: A consultation was placed with the hospitalist. The case was discussed and diagnostics were reviewed. The patient was evaluated in the ER for further treatment. This appears to be consistent with hypotension with vomiting diarrhea, afib RVR with + trop and OREN w/ hyperK. Patient was reassessed multiple times. His pressure began to drop. He was given epinephrine push doses and Levophed was started. He was given IV fluids for resuscitation along with calcium for his hyperkalemia. Patient was startedon antibiotics for possible infection. CT was reviewed. Patient was seen during the downtime which made a delay in labs and diagnostics. I spoke to his twice. All questions were answered. He was a dmitted to the unit. The kineseologist midlevel was made aware. By the evaluation outlined above emergent etiologies such as appendicitis, diverticulitis, obstruction, mesenteric ischemia, aortic pathology, renal colic, PUD, biliary pathology, UTI, as well as others were deemed relatively unlikely. The family informed about the findings as listed above. All questions were answered and pleased with the treatment. The chart was completed utilizing [employer] Speech voice recognition software. Grammatical errors, random word insertions, pronoun errors, and incomplete sentences are an occassional consequence of this system due to software limitations, ambient noise, and hardware issues. Any formal questions or concerns about the content, text, or information contained within the body of this dictation should be directly addressed to the physician veterinary technician assistant for clarification. Impression & Plan Nausea vomiting and diarrhea, Atrial fibrillation with RVR, Hypotension, Elevated troponin Discharge Plan Visit Data Chief Complaint: Abdominal Pain Stated Complaint: NAUSEA/VOMITING/DIARRHEA/ABDOMINAL PAIN ED Provider: Maryann Dorsey ED Midlevel Provider: Iliana Bartlett Discharge Problem: Nausea vomiting and diarrhea, Atrial fibrillation with RVR, Hypotension, Elevated troponin Patient Disposition: Admitted As Inpatient Condition: Critical Forms Stand Alone Forms: [facility] Prescriptions Prescriptions: No Action citalopram [Celexa] 10 mg Tablet 10 mg PO BID RF: 0 potassium chloride 10 mEq Tablet Extended Release 10 meq PO QAM RF: 0 lisinopril 2.5 mg Tablet 2.5 mg PO QPM RF: 0 melatonin 1 mg Tablet 1 mg PO HS RF: 0 metoprolol tartrate 25 mg Tablet 25 mg PO QAM RF: 0 cholecalciferol (vitamin D3) [Vitamin D3] 50 mcg (2,000 unit) Tablet 50 mcg PO QAM RF: 0 furosemide [Lasix] 40 mg Tablet 40 mg PO QAM RF: 0 artificial tears solution Drops 1 drp ophthalmic (eye) .Q 1 HOURS PRN (Reason: discomfort) RF: 0 famotidine [Pepcid] 20 mg Tablet 20 mg PO BID RF: 0 psyllium Powder 1 tbsp PO BID RF: 0 [id number] 0.05-0.1-1-1 % Drops 1 drp OPB .Q 1 HOUR PRN (Reason: Dry Eyes) RF: 0 ondansetron HCl [Zofran] 4 mg Tablet 4 mg PO BID PRN (Reason: Nausea And Vomiting) RF: 0 acetaminophen [Tylenol Extra Strength] 500 mg Tablet 500 mg PO Q4 MDD 3gm PRN (Reason: temp>99.5) RF: 0 acetaminophen [Tylenol Extra Strength] 500 mg Tablet 500 mg PO Q4 MDD 3gm PRN (Reason: pain all levels) RF: 0 triamcinolone acetonide 0.1 % Cream 1 applic TOPICAL BID PRN (Reason: Rash) RF: 0 nystatin 100,000 unit/gram Cream 1 applic TOPICAL UD PRN (Reason: Rash) RF: 0 Referrals Referrals: Ledy Drummond [Primary Care Provider] -
[2020-12-02 00:55] LABS: Basophils # (auto) 0.01 K/uL (0-0.2); Basophils % (auto) 0.1 %; Eosinophils # (auto) 0.01 K/uL (0-0.5); Eosinophils % (auto) 0.1 %; Hematocrit (blood only) 44.7 % (42-52); Hemoglobin 14.6 g/dL (14.0-18.0); Immature Granulocytes # (auto) 0.11 K/uL (0.00-0.02); Lymphocytes # (auto) 0.45 K/uL (1.2-3.4); Mean Corpuscular Hemoglobin 31.7 pg (25-34); Mean Corpuscular Hgb Conc 32.7 g/dL (32-36); Mean Corpuscular Volume 97.2 fL (80-100); Mean Platelet Volume 10.8 fL (7.4-10.4); Monocytes # (auto) 0.62 K/uL (0.11-0.59); Monocytes % (auto) 5.4 %; Neutrophils # (auto) 10.19 K/uL (1.4-6.5); Neutrophils % (auto) 89.4 %; Nucleated RBC # (auto) 0.03 K/uL (0-0); Nucleated RBC % (auto) 0.2 %; Platelet Count 311 K/uL (130-400); RDW Coefficient of Variation 14.6 % (11.5-14.5); RDW Standard Deviation 51.5 fL (36.4-46.3); White Blood Count 11.39 K/uL (4.8-10.8)
[2020-12-02] MEDS ORDERED: SODIUM CHLORIDE 0.9% 1000ML 1,000 ML IV SCH ×2 (01:00→04:48)
[2020-12-02 01:03] LABS: Appearance Urine Clear (Clear); Bilirubin Urine Negative (Negative); Blood Urine Negative (Negative); Color Urine Yellow; Glucose Urine UA Negative (Negative); Ketones Urine Negative (Negative); Leukocyte Esterase Urine Negative (Negative); Nitrite Urine Negative (Negative); Protein Urine Negative (Negative); Urobilinogen Urine Negative (Negative)
[2020-12-02 01:19] LABS: Albumin Globulin Ratio 0.8 (0.9-2); Albumin Level 3.1 gm/dl (3.4-5.0); BUN Creatinine Ratio 19.1 (10-20); Bilirubin,Total 1.3 mg/dl (0.2-1); Calcium 9.8 mg/dl (8.5-10.1); Creatinine Clr Calc Pharmacy 26.4 ml/min; Est GFR (African American) 28.3; Est GFR (Non-African American) 24.4; Magnesium 2.8 mg/dl (1.8-2.4); Potassium 5.8 mmol/L (3.5-5.1); Total Protein 7.1 gm/dl (6.4-8.2); Troponin I 0.092 ng/ml (0-0.045)
[2020-12-02] MEDS ORDERED: IOVERSOL 100ml IV ONE (01:26)
[2020-12-02] MEDS ORDERED: EPINEPHrine INJ 1 MG/ML AMP ONE (01:38)
[2020-12-02] MEDS ORDERED: NOREPINEPHRINE/D5W 8 MG/508 ML IV ONE (01:52)
[2020-12-02] MEDS ORDERED: STAT IV Infusion **Titration per Protocol STA ×3 (01:52→06:19)
[2020-12-02] MEDS ORDERED: NOREPINEPHRINE/D5W 8 MG/508 ML BAG IV SCH (02:00)
[2020-12-02] MEDS ORDERED: CALCIUM GLUCONATE 1000 MG/60 ML NSS IV ONE ×2 (02:40→02:41)
[2020-12-02] MEDS ORDERED: metroNIDAZOLE 500 MG/100 ML BAG IV ONE (02:41)
[2020-12-02] MEDS ORDERED: levoFLOXacin 500MG / 100ML D5W IV ONE (02:42)
--- NOTE | 2020-12-02 03:54 | History & Physical Report ---
Date of Service December 02, 2020 Assessment & Plan (1) Sepsis: Mr. Ochoa is an 89 yo gentleman with a PMHx of Alzheimers dementia and Afib with RVR (not on anticoagulation) who presented to the ED with nausea/vomiting and diarrhea. Patient was found to be septic on admission, requiring vasoactive mediation for blood pressure support. He was transferred directly to the ICU for further management. - SIRS criteria met on admission (WBC 16, HR > 90) - patient became hypotensive in the ED, SBP <90 - he was volume resuscitated with 3L of Normal saline - started on Levophed for BP support - as for the infectious source: UA was negative. cdiff gene negative. COVID 19 neg. CXR was difficult to interpret due to poor inspiratory effort; CT abdomen and pelvis showing some bibasilar airspace opacities and atelectasis (possible aspiration PNA given history of vomiting?); possible evidence of enterocolitis. symptoms may also be secondary to immune response to second COVID vaccination, which was administered to patient 24 hours DEVELOPMENT AND HOUSING DIRECTOR - patient given Levofloxacin and Flagy in ED. Continue Levofloxacin, Vancomycin and Aztreonam on admission (patient has penicillin allergy on chart, reaction unknown) - blood cultures were not drawn prior to antibiotic administration - lactate level ordered - echo ordered - continue maintenance fluids at 125/hr -aspiration precautions (2) Hypotension: - SBP dropped to < 90 while in ED - patient bolused with 3L of NSS - started on Levophed as above - suspect secondary to sepsis - recommend holding home lisinopril, metoprolol and furosemide - MAP goal > 65 (3) Encephalopathy: - patient with PMHx of severe Alzheimers dementia; suspect baseline is quite poor - patient unable to respond on admission, does moan when examined - head CT ordered - BG 291 on admission. Calcium and sodium normal. TSH not drawn. ammonia not drawn. - suspect metabolic in origin due to sepsis (4) Nausea vomiting and diarrhea: - patient reportedly had these symptoms on 12/01/20 - likely contributed to relative volume loss - etiology unknown: possible viral enterocolitis vs. immune response to COVID 19 vaccine - volume replacement as above - zofran prn for nausea - consider stool culture (5) Elevated troponin: - trop elevated to 0.097 on admission - EKG without ST segment changes - suspect secondary to demand/supply mismatch in acute septic state - sepsis management as above - trend trops (6) Acute kidney injury: - Cr elevated to 2.29 on admission (baseline 0.71 from 11/15/20) - BUN 44, ratio of 19 - suspect pre-renal due to volume loss (diarrhea and vomiting as above) - IVF as above - trend BMP - renally dose meds as appropriate (7) Hyperkalemia: - K 5.8 on admission - suspect secondary to elevated Cr - no EKG changes - IVF as above - repeat BMP in am (8) Atrial fibrillation with RVR: - chronic - not on anticoagulation (patient has history of frequent falls) - rate controlled with metoprolol tartrate 25mg qam. hold while hypotensive - suspect RVR episode secondary to volume loss (diarrhea, vomiting). IVF as above. - consider electrical cardioversion if patient remains in RVR and hypotensive (9) Metabolic acidosis: - bicarb mildly low at 22 on admission. - AG elevated to 17.3 (corrected for low albumin) - lactate pending. patient does have elevated BUN (44). BG 291 on admission, no history of diabetes; not in DKA. No report of salicylate use by [facility] staff. Not on isoniazid. Methanol/ethylene glycol/propylene glycol ingestion unlikley. - blood gas not obtained - trend BMP (10) Leukocytosis: - WBC elevated to 16 on arrival to ED --> 11 on recheck - infections vs. reactive - nasal MRSA DNA swab ordered - Abx as above Dispo: ICU PPX: Heparin, Famotidine Diet: NPO while encephalopathic Code: DNR/DNI History of Present Illness Primary Care Provider: [facility] Mr. Ochoa is an 89 yo male with a PMHx of Alzheimers dementia and A-fib with RVR (not on anticoagulation, presumably due to frequent falls?) who was brought to the emergency department from [facility] after having nausea/vomiting and diarrhea all day (12/01/19). He was reportedly given zofran at [facility], after which he had no recurrent episodes of emesis, but the diarrhea persisted. Of note, he was apparently in his usual state of health leading up to the day of admission - he did get his second COVID 19 vaccine at [facility] on 11/30/20. Patient and his live together at [facility] - ED provider reportedly spoke with over the phone on his arrival - she confirmed he is a DNR/DNI. On arrival to the ED: he was afebrile, HR 156bpm. BP 96/65. RR 18, O2 88 on room air. He was given supplemental oxygen, 6L via oxy mask, and his saturation improved to 98%. His WBC was elevated to 16, 11 on recheck with neutrophil predominance. Hgb normal at 14. Potassium elevated to 5.8, mag elevated to 2.8. Cr elevated to 2.29, BUN at 44. T bili elevated to 1.3. Cdiff gene negative. COVID 19 neg. trop 0.097. EKG showing Afib with RVR at 144 bpm. CXR showing redu melodie inspiratory effort. AP CT scan showing bilateral lower lobe airspace opacities and atelectasis; bowel findings consistent with possible enterocolitis. Patient was given 3L of NSS, and 1 dose of IV Flagyl and levofloxacin. When his SBP < 90, he was started on Levophed at 0.05mcg. His decompensation and subsequent admission took place over [facility] downtime. Patient was transferred directly to the ICU for vasoactive medication management. Allergies Allergy/AdvReac Type Severity Reaction Status Date / Time Penicillins Allergy Intermediate RASH Verified 12/02/20 01:25 Home Medications Medication Instructions Recorded Confirmed Type acetaminophen [Tylenol Extra 500 mg PO Q4 PRN MDD 3gm 12/02/20 12/02/20 History Strength] acetaminophen [Tylenol Extra 500 mg PO Q4 PRN MDD 3gm 12/02/20 12/02/20 History Strength] artificial tears solution 1 drp OPHTHALMIC (EYE) .Q 1 HOURS 12/02/20 12/02/20 History PRN cholecalciferol (vitamin D3) 50 mcg PO QAM 12/02/20 12/02/20 History [Vitamin D3] citalopram [Celexa] 10 mg PO BID 12/02/20 12/02/20 History famotidine [Pepcid] 20 mg PO BID 12/02/20 12/02/20 History furosemide [Lasix] 40 mg PO QAM 12/02/20 12/02/20 History lisinopril 2.5 mg PO QPM 12/02/20 12/02/20 History melatonin 1 mg PO HS 12/02/20 12/02/20 History metoprolol tartrate 25 mg PO QAM 12/02/20 12/02/20 History nystatin 1 applic TOPICAL UD PRN 12/02/20 12/02/20 History ondansetron HCl [Zofran] 4 mg PO BID PRN 12/02/20 12/02/20 History potassium chloride 10 meq PO QAM 12/02/20 12/02/20 History psyllium 1 tbsp PO BID 12/02/20 12/02/20 History [id number] 1 drp OPB .Q 1 HOUR PRN 12/02/20 12/02/20 History triamcinolone acetonide 1 applic TOPICAL BID PRN 12/02/20 12/02/20 History Past Med/Surg History Medical History Accidental medication overdose Alzheimer's dementia Nondisplaced fracture of lateral end of clavicle Surgical History No pertinent past surgical history Family History Other No pertinent family history Social History Smoking Status: Unknown if ever smoked Hx Alcohol Use: No Hx Substance Use: No Preferred Language: Polish Communication Ability: Unable Communication Ability Comment: Severe Dementia. Bioinformaticist Required: No Beliefs That Will Affect Care: None Current Living Situation: Custodial Current Living Situation Comment: [place] Other Information That Helps Us Care for You: No Feels Safe at Home: Declines to Answer Review of Systems Review of Systems: Unobtainable due to cognitive status Physical Exam Constitutional: + ill appearing and + lethargic ENMT: external ear and nose normal, oropharynx normal Neck: normal visual inspection and trachea midline Respiratory: normal respiratory effort; no respiratory distress, no labored breathing and no cough Auscultation: no crackles and no wheezes coarse breath sounds Cardiovascular: Rate/Rhythm: + tachycardic and + irregularly irregular Heart Sounds: normal S1, normal S2 and + murmur Extremities: no pedal edema Gastrointestinal (Abdomen): Inspection/Auscultation: abdomen normal to inspection, + abdomen distended and normal bowel sounds Percussion/Palpation: no guarding, abdomen not rigid and no hepatosplenomegaly Skin: no rashes, warm and dry Results & Data Results & Data ([facility]) Vital Signs (Past 12 Hours) Vital Signs Temp Pulse Pulse Resp BP BP Pulse Ox 12/02/20 01:56 130 H 18 104/60 98 12/02/20 00:37 36.3 C L 156 H 18 96/65 L 88 L Code Status & VTE Plan VTE Prophylaxis Plan VTE Prophylaxis will be ordered: Yes Critical Care Time Critical Care Time: Yes Total Critical Care Time: 55 Supervising Physician Co-Signing Physician Notes Attending addendum: I have physically seen this patient, have supervised the medical residents activities, and agree with the H&P unless as otherwise noted. Assessment and Plan: Septic shock- SIRS criteria met Status post 3 L normal saline in the ED. Levophed drip begun in the ED to improve blood pressure Empiric coverage with IV antibiotics vancomycin IV, aztreonam IV and levofloxacin IV Follow urine culture and sensitivities Follow blood cultures and sensitivities NS@25 mils per hour Acute metabolic encephalopathy/history of severe SDAT- Treat as above. Admission to intensive care unit- Consult premium card cancellation clerk. Resident Activity Tracking Resident Involvement: Resident Care Provided Care Provided: Adult Hospital Medicine
[2020-12-02] MEDS ORDERED: SODIUM CHLORIDE 0.9% 1000ML 500 ML IV ONE (04:13)
[2020-12-02] MEDS ORDERED: VANCOMYCIN CONSULT ACTIVE PRN (04:48)
[2020-12-02] MEDS ORDERED: ICU PROTOCOL FOR HYPERGLYCEMIA PRN (04:48)
[2020-12-02] MEDS ORDERED: LEVALBUTEROL HCL 0.63 MG/3 ML NEB INH PRN (04:48)
[2020-12-02] MEDS ORDERED: ACETAMINOPHEN 1000 MG/100 ML IV IV PRN (04:48)
[2020-12-02] MEDS ORDERED: IPRATROPIUM BROMIDE NEB SOLN 0.02% 2.5 ML VIAL INH PRN (04:48)
--- NOTE | 2020-12-02 05:19 | Critical Care Consultation ---
Date of Consultation December 02, 2020 Assessment & Plan (1) Admitted to intensive care unit: Reason Critically Ill: 89-year-old male presenting with severe sepsis with septic shock secondary to likely intra-abdominal pathology requiring close hemodynamic monitoring in the setting of utilization of vasopressor support. Patient presented to the emergency department where he was found to be septic, however initially hemodynamically stable. He did respond initially to IV fluids. The patient dropped his blood pressure in the emergency department to the 60s systolically. He had rapid A. fib at that point as well. He received aggressive IV fluid boluses which did seem to improve his blood pressure minimally. He did receive push dose pressors which did show moderate improvement in blood pressure. He was placed on Levophed and covered with broad-spectrum antibiotics. Chest x-ray demonstrated no significant findings. He was transferred to the ICU for ongoing evaluation and management. Upon evaluation in the ICU, the patient is obviously uncomfortable. He is agitated and delirious which is likely acute on chronic given his history of Alzheimer's disease. Initially, his heart rates were fluctuating into the 140s and an irregularly irregular pattern. I did add phenylephrine to hopefully liner machine operator helper with blood pressure as well as heart rate. Repeat labs were obtained including a lactate which was greater than 6. I did order ABG as well as repeat PRP as I was concerned for progression to metabolic acidosis as he had demonstrated hyperkalemia on initial presentation. ABG suggestive of worsening metabolic acidosis. I did reach out to general surgery. They were kind enough to evaluate the patient at bedside. Recommendation for comfort measures versus transfer to tertiary care facility for surgical intervention as he would likely require colorectal surgery. At this point, I did reach out to the patient's , Afsaneh. I explained current situation and patient's tenuous status. I did explain all scenarios including surgical intervention versus transfer versus comfort measures. She was very adamant that she would wish to proceed with comfort measures only at this time. I did offer for her to present to the hospital to sit with her during the dying process. She did wish to present. I did speak with nursing staff as well as admissions. She will be screened and brought to the ICU to sit with her . She does report that she has had no Covid exposures or symptoms. She did receive her first round of Materna vaccination on Sunday. Comfort measure orders were placed including morphine drip, Ativan, and other comfort related drugs. Orders placed to discontinue all other medications when arrives at bedside. 0900: I did meet with the patient's , Afsaneh, at bedside. We discussed current condition. We reiterated goals of care at this point to include comfort measures only at this time. She agrees that she wishes for focus of care for peaceful transition to . Nursing staff proceeds with comfort measures at this time. I have personally spent 60 minutes of critical care time in the direct management of this patient. This is a life/limb threatening event. This includes time spent evaluating patient, direct bedside care, chart review, placing orders, interpretation of diagnostic studies, discussion with consultants, patient, and family members, as well as other required patient management activities. This time is exclusive of all separately billable procedures, and teaching time and separate from and in addition to any other critical care service time. Thank you for allowing us to participate in the care of this patient. Please refer to my attending physician's documentation for any further recommendations. (2) Enterocolitis: (3) Metabolic acidosis: (4) Hyperkalemia: (5) Encephalopathy: (6) Acute kidney injury: (7) Sepsis: (8) Nausea vomiting and diarrhea: (9) Atrial fibrillation with RVR: (10) Hypotension: History of Present Illness Attending Physician: Margarito Sanders MD History of Present Illness Patient is an unfortunate 89-year-old male with a significant past medical history of Alzheimer's, A. fib, frequent falls, and dementia. Patient presented to the emergency department as he was noted to be with nausea, vomiting, and diarrhea at his longterm facility. Upon arrival, the patient was noted to be hypotensive and tachycardic. He received IV fluids and CT scan of the abdomen pelvis demonstrated moderate colonic dilatation with possible enterocolitis. He was treated with IV antibiotics. The patient apparently developed a rapid A. fib with heart rates into the 160s. He received increasing amounts of IV fluids which minimally helped. He was placed on Levophed secondary to hypotension. Upon arrival in the ICU, the patient is somnolent and not cooperative with staff on exam secondary to worsening from baseline status. Offers no information to HPI. Allergies Allergy/AdvReac Type Severity Reaction Status Date / Time Penicillins Allergy Intermediate RASH Verified 12/02/20 01:25 Home Medications Medication Instructions Recorded Confirmed Type acetaminophen [Tylenol Extra 500 mg PO Q4 PRN MDD 3gm 12/02/20 12/02/20 History Strength] acetaminophen [Tylenol Extra 500 mg PO Q4 PRN MDD 3gm 12/02/20 12/02/20 History Strength] artificial tears solution 1 drp OPHTHALMIC (EYE) .Q 1 HOURS 12/02/20 12/02/20 History PRN cholecalciferol (vitamin D3) 50 mcg PO QAM 12/02/20 12/02/20 History [Vitamin D3] citalopram [Celexa] 10 mg PO BID 12/02/20 12/02/20 History famotidine [Pepcid] 20 mg PO BID 12/02/20 12/02/20 History furosemide [Lasix] 40 mg PO QAM 12/02/20 12/02/20 History lisinopril 2.5 mg PO QPM 12/02/20 12/02/20 History melatonin 1 mg PO HS 12/02/20 12/02/20 History metoprolol tartrate 25 mg PO QAM 12/02/20 12/02/20 History nystatin 1 applic TOPICAL UD PRN 12/02/20 12/02/20 History ondansetron HCl [Zofran] 4 mg PO BID PRN 12/02/20 12/02/20 History potassium chloride 10 meq PO QAM 12/02/20 12/02/20 History psyllium 1 tbsp PO BID 12/02/20 12/02/20 History [id number] 1 drp OPB .Q 1 HOUR PRN 12/02/20 12/02/20 History triamcinolone acetonide 1 applic TOPICAL BID PRN 12/02/20 12/02/20 History Patient History Medical History Accidental medication overdose Alzheimer's dementia Nondisplaced fracture of lateral end of clavicle Surgical History No pertinent past surgical history Family History Other No pertinent family history Social History Smoking Status: Unknown if ever smoked Hx Alcohol Use: No Hx Substance Use: No Preferred Language: Bulgarian Communication Ability: Effective Communication Ability Comment: Severe Dementia. Extractions Technician Required: No Beliefs That Will Affect Care: None Current Living Situation: Senior Living Current Living Situation Comment: [place] Other Information That Helps Us Care for You: No Feels Safe at Home: Declines to Answer Review of Systems Review of Systems: Unobtainable due to reduced consciousness Physical Exam Physical Exam: VITAL SIGNS - Vital signs and nursing notes were reviewed. GENERAL - 89-year-old male appearing his stated age who is in moderate distress. Moans in pain. SKIN - Without rashes. HEAD - NC/AT. EYES - PERRL with EOMI bilaterally. EARS - No deformities of external structures noted on gross examination bilaterally. NOSE - Midline and without cyanosis. No epistaxis or purulent drainage noted. Septum midline without deviation or septal hematoma noted. MOUTH/OROPHARYNX - Without perioral cyanosis. NECK - No nuchal rigidity. LUNGS -tachypneic with diminished breath sounds. CARDIAC -irregularly irregular. No significant murmurs appreciated. ABDOMEN - Abdominal contour flat without pulsations or visible masses. Hypoactive bowel sounds. Tenderness palpation rebound tenderness noted on exam. Exam findings consistent with peritonitis. EXTREMITIES - No clubbing or peripheral cyanosis. No pretibial edema present. +3/5 radial pulses palpated throughout. +5/5 strength noted in UE/LE bilaterally. NEUROLOGIC -no focal neurological exam findings appreciated. Patient moaning and withdraws to pain. Results & Data Results & Data ([facility]) Vital Signs (Past 12 Hours) Vital Signs Temp Pulse Pulse Resp BP BP Pulse Ox 12/02/20 04:26 153 H 22 60/40 L 96 12/02/20 04:05 128 H 36 H 66/47 L 100 12/02/20 04:01 145 H 25 H 93 12/02/20 04:00 144 H 36 H 65/55 L 92 12/02/20 03:58 153 H 33 H 100 12/02/20 03:56 147 H 31 H 60/39 L 100 12/02/20 03:51 144 H 32 H 97 12/02/20 03:50 140 H 35 H 88/63 L 95 12/02/20 03:45 134 H 33 H 73/51 L 94 12/02/20 03:41 150 H 34 H 94 12/02/20 03:40 144 H 33 H 74/59 L 94 12/02/20 03:35 160 H 35 H 90/60 L 97 12/02/20 03:31 158 H 32 H 95 12/02/20 03:30 150 H 36 H 83/59 L 94 12/02/20 03:25 154 H 34 H 102/78 96 12/02/20 03:23 140 H 33 H 91/53 L 99 12/02/20 03:21 137 H 32 H 51/39 L 100 12/02/20 03:20 139 H 33 H 99 12/02/20 03:15 131 H 145 H 34 H 86/58 L 70/65 L 100 12/02/20 03:11 140 H 33 H 100/35 L 100 12/02/20 03:10 129 H 33 H 100 12/02/20 03:05 148 H 33 H 88/67 L 99 12/02/20 03:01 130 H 35 H 94 12/02/20 03:00 134 H 31 H 101/67 100 12/02/20 02:55 143 H 31 H 80/64 L 100 12/02/20 02:51 139 H 33 H 95/74 L 93 12/02/20 02:50 140 H 33 H 98 12/02/20 02:45 144 H 30 H 94/61 L 97 12/02/20 02:41 127 H 32 H 98 12/02/20 02:40 135 H 34 H 88/63 L 98 12/02/20 02:35 139 H 34 H 92/62 L 93 12/02/20 02:31 144 H 30 H 81/58 L 95 12/02/20 02:30 127 H 31 H 96 12/02/20 02:29 127 H 32 H 84/56 L 94 12/02/20 02:26 135 H 34 H 65/46 L 90 12/02/20 02:21 130 H 33 H 92 12/02/20 02:20 137 H 34 H 95/66 L 93 12/02/20 02:16 144 H 28 H 70/30 L 89 L 12/02/20 02:12 133 H 29 H 100/46 L 91 12/02/20 02:11 142 H 33 H 91 12/02/20 02:10 147 H 30 H 49/30 L 90 12/02/20 02:07 134 H 33 H 75/46 L 90 12/02/20 02:06 131 H 33 H 93/20 L 90 12/02/20 02:03 138 H 32 H 118/92 93 12/02/20 02:01 144 H 30 H 95 12/02/20 02:00 135 H 33 H 104/65 93 12/02/20 01:57 147 H 32 H 86/40 L 98 12/02/20 01:56 130 H 18 104/60 98 12/02/20 01:54 136 H 31 H 104/67 99 12/02/20 01:51 145 H 32 H 87/50 L 100 12/02/20 01:50 128 H 33 H 75/50 L 97 12/02/20 00:37 36.3 C L 156 H 18 96/65 L 88 L Coding Level of Care Code Critical Care 1st 30-74 mins Diagnoses Admitted to intensive care unit Z78.9 Enterocolitis K52.9 Metabolic acidosis E87.2 Hyperkalemia E87.5 Encephalopathy G93.40 Acute kidney injury N17.9 Sepsis A41.9 Nausea vomiting and diarrhea R11.2; R19.7 Atrial fibrillation with RVR I48.91 Hypotension I95.9 Time Spent (min) 60
[2020-12-02] MEDS ORDERED: VANCOMYCIN HCL 2,000 MG in SODIUM CHLORIDE 0.9% 500 ML IV ONE (05:30)
[2020-12-02] MEDS: PHENYLEPHRINE HCL 20 MG in DEXTROSE 5% 500 ML IV SCH ×2 (05:41→11:46)
[2020-12-02] MEDS ORDERED: AZTREONAM 2,000 MG in DEXTROSE 5% 100 ML IV ONE (06:00)
[2020-12-02] MEDS ORDERED: FAMOTIDINE 20 MG in SYRINGE 3 ML IV SCH (06:00)
[2020-12-02] MEDS ORDERED: AMIODARONE / D5W 150 MG/100 ML BAG IV STA (06:19)
[2020-12-02] MEDS ORDERED: AMIODARONE IV BOLUS & DRIP IV STA (06:19)
[2020-12-02] MEDS ORDERED: 0.2 MICRON FILTER SET 1 EA IV ONE (06:19)
[2020-12-02] MEDS ORDERED: AMIODARONE / D5W 360 MG/200 ML BAG IV ONE (06:45)
[2020-12-02 07:17] LABS: Allen Test Pos (Pos); Base Excess ABG -8.1 mEq/L (-9-1.8); HCO3 ABG 17 mmol/L (19-24); PCO2 ABG 35 mmHg (35-46); PO2 ABG 58 mmHg (80-95); pH ABG 7.31 (7.35-7.45)
[2020-12-02 07:40] LABS: BUN Creatinine Ratio 26.2 (10-20); Calcium 8.3 mg/dl (8.5-10.1); Creatinine Clr Calc Pharmacy 28.3 ml/min; Est GFR (African American) 34.6; Est GFR (Non-African American) 29.8; Magnesium 2.2 mg/dl (1.8-2.4); Potassium 5.3 mmol/L (3.5-5.1)
--- NOTE | 2020-12-02 07:48 | XRay Report ---
XR chest 1V portable CLINICAL HISTORY: Abdominal pain. COMPARISON STUDY: Chest radiograph December 10, 2019. FINDINGS: Lung volumes are diminished. Cardiomegaly is noted. There is no evidence for pulmonary howard a. There is no pneumothorax. No pleural effusion is noted. There is bibasilar opacities, greater on t he left. IMPRESSION: 1. Bibasilar opacities, greater on the left. The findings could reflect an infectious process or atel ectasis. Radiographic follow up is recommended. 2. Cardiomegaly without evidence for pulmonary edema. 3. Low lung volumes. ACT 112: Negative or not required by law. Electronically signed by: Bulmaro Cordova M.D. 12/02/2020 7:47 AM
[2020-12-02 07:55] LABS: Phosphorus 4.4 mg/dl (2.5-4.9); Troponin I 0.212 ng/ml (0-0.045)
--- NOTE | 2020-12-02 08:04 | Surgery Consultation ---
Date of Consultation December 02, 2020 Assessment & Plan (1) Leukocytosis: (2) Metabolic acidosis: (3) Hyperkalemia: (4) Encephalopathy: (5) Acute kidney injury: (6) Sepsis: (7) Nausea vomiting and diarrhea: (8) Hypotension: (9) Enterocolitis: pt is a 89 year-old male who presents to ER with nausea, vomiting, diarrhea who was admitted to ICU for sepsis, IMP: sepsis, enterocolitis, acute renal failure, hypotension, base on pt's age, 89, Alzheimers dementia and A-fib with RVR, critical condition now, low BP, on 2 pressure drip, pt is poor candidate for surgery treatment, a chance of survival is very low, recommend conservative treatment, but still survival is low, may transfer to higher level care for colorectal surgeon consult if pt's family member want to do surgery, D/W ICU attending.sign off, please call with questions, Thanks, Present on Admission?: Yes History of Present Illness Attending Physician: CC: nausea, vomiting, diarrhea Mr. Ochoa is an 89 yo male with a PMHx of Alzheimers dementia and A-fib with RVR (not on anticoagulation, presumably due to frequent falls?) who was brought to the emergency department from [facility] after having nausea/vomiting and diarrhea all day (12/01/19). He was reportedly given zofran at [facility], after which he had no recurrent episodes of emesis, but the diarrhea persisted. Of note, he was apparently in his usual state of health leading up to the day of admission - he did get his second COVID 19 vaccine at [facility] on 11/30/20. Patient and his live together at [facility] - ED provider reportedly spoke wi th over the phone on his arrival - she confirmed he is a DNR/DNI. On arrival to the ED: he was afebrile, HR 156bpm. BP 96/65. RR 18, O2 88 on room air. He was given supplemental oxygen, 6L via oxy mask, and his saturation improved to 98%. His WBC was elevated to 16, 11 on recheck with neutrophil predominance. Hgb normal at 14. Potassium elevated to 5.8, mag elevated to 2.8. Cr elevated to 2.29, BUN at 44. T bili elevated to 1.3. Cdiff gene negative. COVID 19 neg. trop 0.097. EKG showing Afib with RVR at 144 bpm. CXR showing reduced inspiratory effort. AP CT scan showing bilateral lower lobe airspace opacities and atelectasis; bowel findings consistent with possible enterocolitis. Patient was given 3L of NSS, and 1 dose of IV Flagyl and levofloxacin. When his SBP < 90, he was started on Levophed at 0.05mcg. His decompensation and subsequent admission took place over [facility] downtime. Patient was transferred directly to the ICU for vasoactive medication management. I ( Keegan Calles mD ) got a call from ICU attending for consult CT scan finding enterocolitis, I reviewed pt's H/P, labs, CT scan with ICU nurse at pt's bedside. pt is intubation with 2 pressure drips, BP 80/50, HR 145, DNR. Allergies Allergy/AdvReac Type Severity Reaction Status Date / Time Penicillins Allergy Intermediate RASH Verified 12/02/20 01:25 Home Medications Medication Instructions Recorded Confirmed Type acetaminophen [Tylenol Extra 500 mg PO Q4 PRN MDD 3gm 12/02/20 12/02/20 History Strength] acetaminophen [Tylenol Extra 500 mg PO Q4 PRN MDD 3gm 12/02/20 12/02/20 History Strength] artificial tears solution 1 drp OPHTHALMIC (EYE) .Q 1 HOURS 12/02/20 12/02/20 History PRN cholecalciferol (vitamin D3) 50 mcg PO QAM 12/02/20 12/02/20 History [Vitamin D3] citalopram [Celexa] 10 mg PO BID 12/02/20 12/02/20 History famotidine [Pepcid] 20 mg PO BID 12/02/20 12/02/20 History furosemide [Lasix] 40 mg PO QAM 12/02/20 12/02/20 History lisinopril 2.5 mg PO QPM 12/02/20 12/02/20 History melatonin 1 mg PO HS 12/02/20 12/02/20 History metoprolol tartrate 25 mg PO QAM 12/02/20 12/02/20 History nystatin 1 applic TOPICAL UD PRN 12/02/20 12/02/20 History ondansetron HCl [Zofran] 4 mg PO BID PRN 12/02/20 12/02/20 History potassium chloride 10 meq PO QAM 12/02/20 12/02/20 History psyllium 1 tbsp PO BID 12/02/20 12/02/20 History [id number] 1 drp OPB .Q 1 HOUR PRN 12/02/20 12/02/20 History triamcinolone acetonide 1 applic TOPICAL BID PRN 12/02/20 12/02/20 History Past Med/Surg History Medical History Accidental medication overdose Alzheimer's dementia Nondisplaced fracture of lateral end of clavicle Surgical History No pertinent past surgical history Family History Other No pertinent family history Social History Smoking Status: Unknown if ever smoked Feels Safe at Home: Yes Review of Systems Review of Systems: Unobtainable due to cognitive status Allergies Allergy/AdvReac Type Severity Reaction Status Date / Time Penicillins Allergy Intermediate RASH Verified 12/02/20 01:25 Home Medications Medication Instructions Recorded Confirmed Type acetaminophen [Tylenol Extra 500 mg PO Q4 PRN MDD 3gm 12/02/20 12/02/20 History Strength] acetaminophen [Tylenol Extra 500 mg PO Q4 PRN MDD 3gm 12/02/20 12/02/20 History Strength] artificial tears solution 1 drp OPHTHALMIC (EYE) .Q 1 HOURS 12/02/20 12/02/20 History PRN cholecalciferol (vitamin D3) 50 mcg PO QAM 12/02/20 12/02/20 History [Vitamin D3] citalopram [Celexa] 10 mg PO BID 12/02/20 12/02/20 History famotidine [Pepcid] 20 mg PO BID 12/02/20 12/02/20 History furosemide [Lasix] 40 mg PO QAM 12/02/20 12/02/20 History lisinopril 2.5 mg PO QPM 12/02/20 12/02/20 History melatonin 1 mg PO HS 12/02/20 12/02/20 History metoprolol tartrate 25 mg PO QAM 12/02/20 12/02/20 History nystatin 1 applic TOPICAL UD PRN 12/02/20 12/02/20 History ondansetron HCl [Zofran] 4 mg PO BID PRN 12/02/20 12/02/20 History potassium chloride 10 meq PO QAM 12/02/20 12/02/20 History psyllium 1 tbsp PO BID 12/02/20 12/02/20 History [id number] 1 drp OPB .Q 1 HOUR PRN 12/02/20 12/02/20 History triamcinolone acetonide 1 applic TOPICAL BID PRN 12/02/20 12/02/20 History Patient History Medical History Accidental medication overdose Alzheimer's dementia Nondisplaced fracture of lateral end of clavicle Surgical History No pertinent past surgical history Family History Other No pertinent family history Social History Smoking Status: Unknown if ever smoked Hx Alcohol Use: No Hx Substance Use: No Preferred Language: Uzbek Communication Ability: Effective Communication Ability Comment: Severe Dementia. Fulling Machine Operator Required: No Beliefs That Will Affect Care: None Current Living Situation: Care Home Current Living Situation Comment: [place] Other Information That Helps Us Care for You: No Feels Safe at Home: Declines to Answer Results & Data ([facility]) Vital Signs (Past 12 Hours) Vital Signs Temp Pulse Pulse Resp BP BP Pulse Ox 12/02/20 06:20 37.3 C 153 H 34 H 83 L 12/02/20 06:16 37.3 C 142 H 34 H 87/45 L 80 L 12/02/20 06:10 37.3 C 132 H 36 H 81 L 12/02/20 06:00 37.3 C 142 H 32 H 81 L 12/02/20 05:49 37.3 C 159 H 33 H 94/75 L 84 L 12/02/20 05:45 37.3 C 136 H 35 H 82 L 12/02/20 05:30 37.3 C 125 H 29 H 82 L 12/02/20 05:16 37.4 C 123 H 34 H 88/60 L 91 12/02/20 05:00 37.4 C 141 H 12/02/20 04:58 37.4 C 154 H 22 101/62 90 12/02/20 04:48 145 H 12/02/20 04:45 152 H 35 H 101/62 12/02/20 04:26 153 H 22 60/40 L 96 12/02/20 04:05 128 H 36 H 66/47 L 100 12/02/20 04:01 145 H 25 H 93 12/02/20 04:00 144 H 36 H 65/55 L 92 12/02/20 03:58 153 H 33 H 100 12/02/20 03:56 147 H 31 H 60/39 L 100 12/02/20 03:51 144 H 32 H 97 12/02/20 03:50 140 H 35 H 88/63 L 95 12/02/20 03:45 134 H 33 H 73/51 L 94 12/02/20 03:41 150 H 34 H 94 12/02/20 03:40 144 H 33 H 74/59 L 94 12/02/20 03:35 160 H 35 H 90/60 L 97 12/02/20 03:31 158 H 32 H 95 12/02/20 03:30 150 H 36 H 83/59 L 94 12/02/20 03:25 154 H 34 H 102/78 96 12/02/20 03:23 140 H 33 H 91/53 L 99 12/02/20 03:21 137 H 32 H 51/39 L 100 12/02/20 03:20 139 H 33 H 99 12/02/20 03:15 131 H 145 H 34 H 86/58 L 70/65 L 100 12/02/20 03:11 140 H 33 H 100/35 L 100 12/02/20 03:10 129 H 33 H 100 12/02/20 03:05 148 H 33 H 88/67 L 99 12/02/20 03:01 130 H 35 H 94 12/02/20 03:00 134 H 31 H 101/67 100 12/02/20 02:55 143 H 31 H 80/64 L 100 12/02/20 02:51 139 H 33 H 95/74 L 93 12/02/20 02:50 140 H 33 H 98 12/02/20 02:45 144 H 30 H 94/61 L 97 12/02/20 02:41 127 H 32 H 98 12/02/20 02:40 135 H 34 H 88/63 L 98 12/02/20 02:35 139 H 34 H 92/62 L 93 12/02/20 02:31 144 H 30 H 81/58 L 95 12/02/20 02:30 127 H 31 H 96 12/02/20 02:29 127 H 32 H 84/56 L 94 12/02/20 02:26 135 H 34 H 65/46 L 90 12/02/20 02:21 130 H 33 H 92 12/02/20 02:20 137 H 34 H 95/66 L 93 12/02/20 02:16 144 H 28 H 70/30 L 89 L 12/02/20 02:12 133 H 29 H 100/46 L 91 12/02/20 02:11 142 H 33 H 91 12/02/20 02:10 147 H 30 H 49/30 L 90 12/02/20 02:07 134 H 33 H 75/46 L 90 12/02/20 02:06 131 H 33 H 93/20 L 90 12/02/20 02:03 138 H 32 H 118/92 93 12/02/20 02:01 144 H 30 H 95 12/02/20 02:00 135 H 33 H 104/65 93 12/02/20 01:57 147 H 32 H 86/40 L 98 12/02/20 01:56 130 H 18 104/60 98 12/02/20 01:54 136 H 31 H 104/67 99 12/02/20 01:51 145 H 32 H 87/50 L 100 12/02/20 01:50 128 H 33 H 75/50 L 97 12/02/20 00:37 36.3 C L 156 H 18 96/65 L 88 L Laboratory Results Abnormal lab results 12/02/20 12/02/20 12/02/20 Range/Units 00:45 00:45 05:19 WBC 11.39 H (4.8-10.8) K/uL RBC 4.60 L (4.7-6.1) M/uL RDW Std Deviation 51.5 H (36.4-46.3) fL RDW Coeff of [place] 14.6 H (11.5-14.5) % MPV 10.8 H (7.4-10.4) fL Neut # (Auto) 10.19 H (1.4-6.5) K/uL Lymph # (Auto) 0.45 L (1.2-3.4) K/uL [place] # (Auto) 0.62 H (0.11-0.59) K/uL Immature Gran # (Auto) 0.11 H (0.00-0.02) K/uL Absolute Nucleated RBC 0.03 H (0-0) K/uL ABG pH (7.35-7.45) ABG pO2 (80-95) mmHg ABG HCO3 (19-24) mmol/L ABG O2 Saturation (90-95) % Potassium 5.8 H D (3.5-5.1) mmol/L Chloride (98-107) mmol/L Carbon Dioxide (21-32) mmol/L Anion Gap 16.0 H (3-11) BUN 44 H (7-18) mg/dl Creatinine 2.29 H D (0.6-1.4) mg/dl BUN/Creatinine Ratio (10-20) Glucose 130 H (70-99) mg/dl Lactate 6.1 H* (0.4-2.0) mmol/L Calcium (8.5-10.1) mg/dl Magnesium 2.8 H (1.8-2.4) mg/dl Total Bilirubin 1.3 H (0.2-1) mg/dl Troponin I 0.092 H* (0-0.045) ng/ml Albumin 3.1 L (3.4-5.0) gm/dl Albumin/Globulin Ratio 0.8 L (0.9-2) 12/02/20 12/02/20 12/02/20 Range/Units 06:52 06:52 06:57 WBC (4.8-10.8) K/uL RBC (4.7-6.1) M/uL RDW Std Deviation (36.4-46.3) fL RDW Coeff of [place] (11.5-14.5) % MPV (7.4-10.4) fL Neut # (Auto) (1.4-6.5) K/uL Lymph # (Auto) (1.2-3.4) K/uL [place] # (Auto) (0.11-0.59) K/uL Immature Gran # (Auto) (0.00-0.02) K/uL Absolute Nucleated RBC (0-0) K/uL ABG pH 7.31 L (7.35-7.45) ABG pO2 58 L (80-95) mmHg ABG HCO3 17 L (19-24) mmol/L ABG O2 Saturation 87.0 L (90-95) % Potassium 5.3 H (3.5-5.1) mmol/L Chloride 110 H (98-107) mmol/L Carbon Dioxide 17 L (21-32) mmol/L Anion Gap (3-11) BUN 51 H (7-18) mg/dl Creatinine 1.94 H D (0.6-1.4) mg/dl BUN/Creatinine Ratio 26.2 H (10-20) Glucose 126 H (70-99) mg/dl Lactate 4.8 H* (0.4-2.0) mmol/L Calcium 8.3 L D (8.5-10.1) mg/dl Magnesium (1.8-2.4) mg/dl Total Bilirubin (0.2-1) mg/dl Troponin I (0-0.045) ng/ml Albumin (3.4-5.0) gm/dl Albumin/Globulin Ratio (0.9-2) Diagnostic Findings CT scan finding- enterocolitis,
[2020-12-02] MEDS ORDERED: LORazepam 0.5 MG/1 ML VIAL IV PRN (08:18)
[2020-12-02] MEDS ORDERED: GLYCOPYRROLATE 0.2 MG/ML VIAL IV PRN (08:18)
[2020-12-02] MEDS ORDERED: ONDANSETRON INJ 2 MG/ML 2 ML VIAL IV PRN (08:18)
[2020-12-02] MEDS ORDERED: ATROPINE SULFATE 1% OP SOLN 5 ML BTL SL PRN (08:18)
[2020-12-02] MEDS ORDERED: ONDANSETRON 4 MG OD TAB SL PRN (08:18)
[2020-12-02] MEDS ORDERED: MoRPHine SULF/NSS 250 MG/250 ML BTL IV SCH (08:30)
--- NOTE | 2020-12-02 08:35 | CT Scan Report ---
ABDOMEN AND PELVIS CT WITH IV CONTRAST CT DOSE: 1347.46 mGy.cm HISTORY: Nausea. Vomiting. Diarrhea. Generalized abdominal pain. TECHNIQUE: Multiaxial CT images of the abdomen and pelvis were performed following the use of intrave nous contrast. A dose lowering technique was utilized adhering to the principles of ALARA. COMPARISON STUDY: None. FINDINGS: Patchy airspace consolidation within the base of the bilateral lower lobes with partial opa cification of the bilateral lower lobe bronchi. This may represent an aspiration pneumonia. The heart is mildly enlarged. Small amount of fluid within the distal esophagus. No pneumoperitoneum. No pneum atosis. Bilateral L5 spondylolysis. No suspicious lytic or blastic osseous lesions. Moderate compress ion deformities at L1, L4, and L5. These are age-indeterminate. The L1 compression fracture favors a subacute to chronic injury. The remaining compression fractures appear to be chronic. There is a 1.5 cm gallstone. No gallbladder wall thickening. The liver, spleen, adrenal glands, left kidney are unre markable. There is a 1.2 cm exophytic cyst within the right kidney. No hydronephrosis. Fluid-filled s tomach and small bowel. Borderline enlarged retroperitoneal lymph nodes measuring up to 1 cm short ax is diameter. Normal caliber abdominal aorta. Moderate bladder wall thickening. The prostate gland is mildly enlarged. There is perirectal edema/fat stranding. Liquid stool seen throughout the majority o f the colon. Multiple colonic diverticula. No evidence for acute diverticulitis. Mild thickening invo lving the majority of the colon with pericolonic fat stranding. Redundant sigmoid colon extends into the right upper quadrant. However, no evidence for volvulus. Questionable mild thickening and fat str anding involving a few loops of small bowel within the left side the abdomen. 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 IMPRESSION: 1. Mild thickening throughout the majority colon and rectum with associated fat stranding. This is co nsistent with a nonspecific proctocolitis and could be due to an infectious, inflammatory, less likel y an ischemic process. Correlate for C. difficile colitis is recommended. 2. Patchy airspace consolidation within the bilateral lower lobes with partial opacification of the l ower lobe bronchi. This is concerning for an aspiration pneumonia. 3. Age-indeterminate lumbar spine compression deformities. 4. Cholelithiasis. 5. Borderline retroperitoneal lymphadenopathy. 6. Bladder wall thickening. 7. Additional findings as described above. ACT 112: Negative or not required by law. Electronically signed by: Radu Rosen M.D. 12/02/2020 8:33 AM
--- NOTE | 2020-12-02 10:17 | Electrocardiogram Report ---
Test Reason : Blood Pressure : / mmHG Vent. Rate : 144 BPM Atrial Rate : 131 BPM P-R Int : 000 ms QRS Dur : 100 ms QT Int : 312 ms P-R-T Axes : 000 083 027 degrees QTc Int : 483 ms Atrial fibrillation with rapid ventricular response Abnormal ECG When compared with ECG of 10-DEC-2019 18:41, Atrial fibrillation has replaced Junctional rhythm Vent. rate has increased BY 77 BPM QRS duration has decreased Confirmed by Ced Cole ([id number]) on 12/02/2020 10:16:52 AM Referred By: Ledy Drummond Confirmed By:Jaquan Cole
[2020-12-02] MEDS ORDERED: AMIODARONE / D5W 360 MG/200 ML BAG IV SCH (12:45)
--- NOTE | 2020-12-02 13:22 | Hospitalist Progress Note ---
Date of Service December 02, 2020 Assessment & Plan (1) Sepsis: Mr. Ochoa is an 89 yo gentleman with a PMHx of Alzheimers dementia and Afib with RVR (not on anticoagulation) who presented to the ED with nausea/vomiting and diarrhea. Patient was found to be septic on admission, requiring vasoactive mediation for blood pressure support. He was transferred directly to the ICU for further management. - SIRS criteria met on admission (WBC 16, HR > 90) - patient became hypotensive in the ED, SBP <90 - he was volume resuscitated with 3L of Normal saline - started on Levophed for BP support - as for the infectious source: UA was negative. cdiff gene negative. COVID 19 neg. CXR was difficult to interpret due to poor inspiratory effort; CT abdomen and pelvis showing some bibasilar airspace opacities and atelectasis (possible aspiration PNA given history of vomiting?); possible evidence of enterocolitis. symptoms may also be secondary to immune response to second COVID vaccination, which was administered to patient 24 hours [employer] - patient given Levofloxacin and Flagy in ED. Continue Levofloxacin, Vancomycin and Aztreonam on admission (patient has penicillin allergy on chart, reaction unknown) - blood cultures were not drawn prior to antibiotic administration - lactate level ordered - echo ordered - continue maintenance fluids at 125/hr -aspiration precautions (2) Hypotension: - SBP dropped to < 90 while in ED - patient bolused with 3L of NSS - started on Levophed as above - suspect secondary to sepsis - recommend holding home lisinopril, metoprolol and furosemide - MAP goal > 65 (3) Encephalopathy: - patient with PMHx of severe Alzheimers dementia; suspect baseline is quite poor - patient unable to respond on admission, does moan when examined - head CT ordered - BG 291 on admission. Calcium and sodium normal. TSH not drawn. ammonia not drawn. - suspect metabolic in origin due to sepsis (4) Nausea vomiting and diarrhea: - patient reportedly had these symptoms on 12/01/20 - likely contributed to relative volume loss - etiology unknown: possible viral enterocolitis vs. immune response to COVID 19 vaccine - volume replacement as above - zofran prn for nausea - consider stool culture (5) Elevated troponin: - trop elevated to 0.097 on admission - EKG without ST segment changes - suspect secondary to demand/supply mismatch in acute septic state - sepsis management as above - trend trops (6) Acute kidney injury: - Cr elevated to 2.29 on admission (baseline 0.71 from 11/15/20) - BUN 44, ratio of 19 - suspect pre-renal due to volume loss (diarrhea and vomiting as above) - IVF as above - trend BMP - renally dose meds as appropriate (7) Hyperkalemia: - K 5.8 on admission - suspect secondary to elevated Cr - no EKG changes - IVF as above - repeat BMP in am (8) Atrial fibrillation with RVR: - chronic - not on anticoagulation (patient has history of frequent falls) - rate controlled with metoprolol tartrate 25mg qam. hold while hypotensive - suspect RVR episode secondary to volume loss (diarrhea, vomiting). IVF as above. - consider electrical cardioversion if patient remains in RVR and hypotensive (9) Metabolic acidosis: - bicarb mildly low at 22 on admission. - AG elevated to 17.3 (corrected for low albumin) - lactate pending. patient does have elevated BUN (44). BG 291 on admission, no history of diabetes; not in DKA. No report of salicylate use by [facility] staff. Not on isoniazid. Methanol/ethylene glycol/propylene glycol ingestion unlikley. - blood gas not obtained - trend BMP (10) Leukocytosis: - WBC elevated to 16 on arrival to ED --> 11 on recheck - infections vs. reactive - nasal MRSA DNA swab ordered - Abx as above Dispo: ICU PPX: Heparin, Famotidine Diet: NPO while encephalopathic Code: DNR/DNI Admission and Anticipated Discharge Date Admission Date: December 02, 2020 Results & Data Results & Data ([facility]) Vital Signs (Past 12 Hours) Vital Signs Temp Pulse Pulse Resp BP BP Pulse Ox 12/02/20 09:30 143 H 33 H 79 L 12/02/20 09:15 135 H 36 H 85 L 12/02/20 09:00 140 H 32 H 86 L 12/02/20 08:45 152 H 35 H 90 12/02/20 08:31 37.4 C 147 H 34 H 136/123 H 85 L 12/02/20 08:30 37.4 C 153 H 34 H 86 L 12/02/20 08:16 37.4 C 118 H 34 H 86 L 12/02/20 08:15 37.4 C 119 H 34 H 67/42 L 87 L 12/02/20 08:01 37.4 C 136 H 35 H 81/45 L 85 L 12/02/20 08:00 37.4 C 135 H 34 H 84 L 12/02/20 07:46 37.3 C 138 H 30 H 85 L 12/02/20 07:45 37.3 C 123 H 35 H 90/59 L 86 L 12/02/20 07:31 37.3 C 137 H 34 H 86 L 12/02/20 07:30 37.3 C 136 H 31 H 68/56 L 87 L 12/02/20 07:27 37.3 C 140 H 35 H 71/51 L 85 L 12/02/20 07:16 37.3 C 117 H 34 H 68/45 L 85 L 12/02/20 07:15 37.3 C 131 H 33 H 86 L 12/02/20 07:00 37.3 C 124 H 31 H 80 L 12/02/20 06:58 37.3 C 132 H 34 H 76/62 L 81 L 12/02/20 06:45 37.3 C 123 H 33 H 87 L 12/02/20 06:20 37.3 C 153 H 34 H 83 L 12/02/20 06:16 37.3 C 142 H 34 H 87/45 L 80 L 12/02/20 06:10 37.3 C 132 H 36 H 81 L 12/02/20 06:00 37.3 C 142 H 32 H 81 L 12/02/20 05:49 37.3 C 159 H 33 H 94/75 L 84 L 12/02/20 05:45 37.3 C 136 H 35 H 82 L 12/02/20 05:30 37.3 C 125 H 29 H 82 L 12/02/20 05:16 37.4 C 123 H 34 H 88/60 L 91 12/02/20 05:00 37.4 C 141 H 12/02/20 04:58 37.4 C 154 H 22 101/62 90 12/02/20 04:48 145 H 12/02/20 04:45 152 H 35 H 101/62 12/02/20 04:26 153 H 22 60/40 L 96 12/02/20 04:05 128 H 36 H 66/47 L 100 12/02/20 04:01 145 H 25 H 93 12/02/20 04:00 144 H 36 H 65/55 L 92 12/02/20 03:58 153 H 33 H 100 12/02/20 03:56 147 H 31 H 60/39 L 100 12/02/20 03:51 144 H 32 H 97 12/02/20 03:50 140 H 35 H 88/63 L 95 12/02/20 03:45 134 H 33 H 73/51 L 94 12/02/20 03:41 150 H 34 H 94 12/02/20 03:40 144 H 33 H 74/59 L 94 12/02/20 03:35 160 H 35 H 90/60 L 97 12/02/20 03:31 158 H 32 H 95 12/02/20 03:30 150 H 36 H 83/59 L 94 12/02/20 03:25 154 H 34 H 102/78 96 12/02/20 03:23 140 H 33 H 91/53 L 99 12/02/20 03:21 137 H 32 H 51/39 L 100 12/02/20 03:20 139 H 33 H 99 12/02/20 03:15 131 H 145 H 34 H 86/58 L 70/65 L 100 12/02/20 03:11 140 H 33 H 100/35 L 100 12/02/20 03:10 129 H 33 H 100 12/02/20 03:05 148 H 33 H 88/67 L 99 12/02/20 03:01 130 H 35 H 94 12/02/20 03:00 134 H 31 H 101/67 100 12/02/20 02:55 143 H 31 H 80/64 L 100 12/02/20 02:51 139 H 33 H 95/74 L 93 12/02/20 02:50 140 H 33 H 98 12/02/20 02:45 144 H 30 H 94/61 L 97 12/02/20 02:41 127 H 32 H 98 12/02/20 02:40 135 H 34 H 88/63 L 98 12/02/20 02:35 139 H 34 H 92/62 L 93 12/02/20 02:31 144 H 30 H 81/58 L 95 12/02/20 02:30 127 H 31 H 96 12/02/20 02:29 127 H 32 H 84/56 L 94 12/02/20 02:26 135 H 34 H 65/46 L 90 12/02/20 02:21 130 H 33 H 92 12/02/20 02:20 137 H 34 H 95/66 L 93 12/02/20 02:16 144 H 28 H 70/30 L 89 L 12/02/20 02:12 133 H 29 H 100/46 L 91 12/02/20 02:11 142 H 33 H 91 12/02/20 02:10 147 H 30 H 49/30 L 90 12/02/20 02:07 134 H 33 H 75/46 L 90 12/02/20 02:06 131 H 33 H 93/20 L 90 12/02/20 02:03 138 H 32 H 118/92 93 12/02/20 02:01 144 H 30 H 95 12/02/20 02:00 135 H 33 H 104/65 93 12/02/20 01:57 147 H 32 H 86/40 L 98 12/02/20 01:56 130 H 18 104/60 98 12/02/20 01:54 136 H 31 H 104/67 99 12/02/20 01:51 145 H 32 H 87/50 L 100 12/02/20 01:50 128 H 33 H 75/50 L 97
[2020-12-02] MEDS ORDERED: AZTREONAM 1,000 MG in DEXTROSE 5% 100 ML IV SCH (14:00)
--- NOTE | 2020-12-02 14:22 | Death Pronouncement Note ---
Date of Service December 02, 2020 Pronouncement Note Admission Date Admission Date: December 02, 2020 Called to bedside by nursing for pronouncement after she noticed the patient had stopped breathing. Mr. Ochoa's Afsaneh was at bedside. Patient was resting comfortably under bed sheets, had visibly pale skin. No heart sounds, breath sounds auscultated on exam. No palpable pulse on exam, no visible chest rise. certification filled out, consoled. Contributing Factors (1) Sepsis: (2) Hypotension: (3) Encephalopathy: (4) Nausea vomiting and diarrhea: (5) Elevated troponin: (6) Acute kidney injury: (7) Hyperkalemia: (8) Atrial fibrillation with RVR: (9) Metabolic acidosis: (10) Leukocytosis: Additional Data Attending physician: Carlos Bennett MD Resident Activity Tracking Resident Involvement: Resident Care Provided Care Provided: Adult Hospital Medicine
--- NOTE | 2020-12-02 14:22 | Discharge Summary ---
Date of Service December 02, 2020 Admission HPI Per Admitting Provider Mr. Ochoa is an 89 yo male with a PMHx of Alzheimers dementia and A-fib with RVR (not on anticoagulation, presumably due to frequent falls?) who was brought to the emergency department from [facility] after having nausea/vomiting and diarrhea all day (12/01/19). He was reportedly given zofran at [facility], after which he had no recurrent episodes of emesis, but the diarrhea persisted. Of note, he was apparently in his usual state of health leading up to the day of admission - he did get his second COVID 19 vaccine at [facility] on 11/30/20. Patient and his live together at [facility] - ED provider reportedly spoke w kobe over the phone on his arrival - she confirmed he is a DNR/DNI. On arrival to the ED: he was afebrile, HR 156bpm. BP 96/65. RR 18, O2 88 on room air. He was given supplemental oxygen, 6L via oxy mask, and his saturation improved to 98%. His WBC was elevated to 16, 11 on recheck with neutrophil predominance. Hgb normal at 14. Potassium elevated to 5.8, mag elevated to 2.8. Cr elevated to 2.29, BUN at 44. T bili elevated to 1.3. Cdiff gene negative. COVID 19 neg. trop 0.097. EKG showing Afib with RVR at 144 bpm. CXR showing reduced inspiratory effort. AP CT scan showing bilateral lower lobe airspace opacities and atelectasis; bowel findings consistent with possible enterocolitis. Patient was given 3L of NSS, and 1 dose of IV Flagyl and levofloxacin. When his SBP < 90, he was started on Levophed at 0.05mcg. His decompensation and subsequent admission took place over [facility] downtime. Patient was transferred directly to the ICU for vasoactive medication management. Admission Exam Per Admitting Provider Constitutional: + ill appearing and + lethargic ENMT: external ear and nose normal, oropharynx normal Neck: normal visual inspection and trachea midline Respiratory: normal respiratory effort; no respiratory distress, no labored breathing and no cough Auscultation: no crackles and no wheezes coarse breath sounds Cardiovascular: Rate/Rhythm: + tachycardic and + irregularly irregular Heart Sounds: normal S1, normal S2 and + murmur Extremities: no pedal edema Gastrointestinal (Abdomen): Inspection/Auscultation: abdomen normal to inspection, + abdomen distended and normal bowel sounds Percussion/Palpation: no guarding, abdomen not rigid and no hepatosplenomegaly Skin: no rashes, warm and dry Principal Diagnosis Septic shock Discharge Exam Card: no heartbeat, no pulse, no capillary refill Pulm: no chest movement, no air movement, no breath sounds Const: pale, unmoving, laying still under blanket Discharge Data Allergies Allergy/AdvReac Type Severity Reaction Status Date / Time Penicillins Allergy Intermediate RASH Verified 12/02/20 01:25 Consultations 12/02/20 03:31 ED Decision to Admit Stat 12/02/20 04:48 Consult Case Management - Discharge Planning Routine Consult Tile Layer Drainage Routine 12/02/20 07:45 Consult General Surgery Routine 12/02/20 08:20 Consult Case Management - Discharge Planning Routine Ordered Studies 12/02/20 00:46 CT abd pelvis IV con only Urgent Hospital Course (1) Sepsis: Mr. Ochoa is an 89 yo gentleman with a PMHx of Alzheimers dementia and Afib with RVR (not on anticoagulation) who presented to the ED with nausea/vomiting and diarrhea. Patient was found to be septic on admission, requiring vasoactive mediation for blood pressure support. He was transferred directly to the ICU for further management. Mr. Ochoa suffered body-wide end organ damage most likely secondary to severe septic shock requiring pressor support, including DAR, elevated troponin, elevated lactic acid, metabolic acidosis, afib with RVR. CT A/P showed concern for aspiration pneumonia, enterocolitis, proctocolitis. Decision was made by patient's Afsaneh to make him comfort care given his recent decline in care over the past 2 months and inability to withstand surgical intervention on abdominal cavity if required. Mr. Ochoa passed in the mid afternoon comfortable in the presence of his . (2) Hypotension: (3) Encephalopathy: (4) Nausea vomiting and diarrhea: (5) Elevated troponin: (6) Acute kidney injury: (7) Hyperkalemia: (8) Atrial fibrillation with RVR: (9) Metabolic acidosis: (10) Leukocytosis: Total Time Total Time Spent Total Time Spent (In Minutes): see attending attestation Discharge Plan Discharge Items Patient Disposition: Supervising Physician Co-Signing Physician Notes Attending attestation Pt case reviewed with Dr. Gonzalez. In agreement with the documented findings as noted in the resident documentation with any exceptions or additions as noted here. No attending examination, transitioned to comfort and passed in ICU prior to evaluation. Resident Activity Tracking Resident Involvement: Resident Care Provided Care Provided: Adult Hospital Medicine
--- NOTE | 2020-12-03 05:31 | Billing Data ---
Date of Service December 03, 2020 Coding Level of Care Code Critical Care 12 04- mins
[2020-12-03] MEDS ORDERED: levoFLOXacin/D5W 750 MG/150 ML BAG IV SCH (22:00)
[2020-12-16] MEDS ORDERED: PNEUMOCOCCAL ADMINISTRATION CHARGE ONE (05:43)
[2020-12-16] MEDS ORDERED: PNEUMOCOCCAL POLYSACCHARIDES 25 MCG/0.5 ML VIAL/SYR IM ONE (05:43)
[2020-12-16] MEDS ORDERED: INFLUENZA ADMINISTRATION CHARGE ONE (05:43)
[2020-12-16] MEDS ORDERED: INFLUENZA VACCINE HIGH DOSE 65+ 0.7 ML SYR IM ONE (05:43)
== END 2020-12-02 13:52 | disposition expired | DRG 871 ==
LOC: ED 00:32 → 1E 03:27 → SUATTDRO 03:27 → 1E 04:26 → 2W 11:19